=== PATIENT | female | born 1945 | race Caucasian/White ===

== ENCOUNTER → 2017-05-31 | Outpatient (CLI) | payer OTHER ==
[~2017-05-31] MED LIST: AGG PO; ATEN50TA8 PO; ATOR-54 PO; CHOL100010 PO; COEN75CA PO; FLUT115A INH; IPRA1AER2 INH; MULT-506 PO; OMEG10007 PO; POTA99TA PO; SPRIN/30 INH; TRIA37.5 PO
[2017-05-31 14:19] LABS: ALT/SGPT 27 U/L (12-78); AST/SGOT 21 U/L (15-37); BLOOD UREA NITROGEN 15 mg/dl (7-18); BUN/CREATININE RATIO 21.9 (10-20); CALCIUM 9.5 mg/dl (8.5-10.1); CARBON DIOXIDE 31 mmol/L (21-32); CHLORIDE 101 mmol/L (98-107); CHOLESTEROL 145 mg/dl (0-200); CREATININE 0.68 mg/dl (0.60-1.20); GLUCOSE 90 mg/dl (70-99); POTASSIUM 3.6 mmol/L (3.5-5.1); SODIUM 136 mmol/L (136-145); TRIGLYCERIDES 71 mg/dl (0-150); VERY LOW DENSITY LIPOPROT CALC 14 mg/dl
[2017-05-31 14:22] LABS: ALB/GLOB RATIO 1.2 (0.9-2); ALKALINE PHOSPHATASE 75 U/L (45-117); HDL CHOLESTEROL 74 mg/dl; HEMATOCRIT 43.2 % (37-47); LDL CHOLESTEROL CALCULATED 57 mg/dl; MEAN CELL VOLUME 94.9 fL (80-100); MEAN CORPUSCULAR HEMOGLOBIN 32.1 pg (25-34); MEAN CORPUSCULAR HGB CONC 33.8 g/dl (32-36); MEAN PLATELET VOLUME 9.6 fL (7.4-10.4); PLATELET COUNT 300 K/uL (130-400); RED BLOOD COUNT 4.55 M/uL (4.2-5.4); WHITE BLOOD COUNT 8.87 K/uL (4.8-10.8)
[2017-05-31 14:27] LABS: BASO % 0.6 %; BASO ABS # 0.05 K/uL (0-0.2); COMPLETE YES; EOS % 1.6 %; IG% 0.2 %; LYMPH % 20.5 %; LYMPH ABS # 1.82 K/uL (1.2-3.4); MONO % 9.2 %; NEUT % 67.9 %; PLT ESTIMATE NORMAL; VACUOLIZATION 1+
== END | disposition home or self-care (01) ==
LOC: C.LABMFLN 11:20
PROVIDERS: ATTEND Family Medicine
DX: I10 Essential (primary) hypertension (principal); E78.5 Hyperlipidemia, unspecified

== ENCOUNTER 2025-01-19 17:57 | Inpatient (IN) ==
[2025-01-19 18:35] LABS: Basophils # (auto) 0.03 K/uL (0.00-0.20); Basophils % (auto) 0.2 %; Eosinophils # (auto) 0.03 K/uL (0.00-0.50); Eosinophils % (auto) 0.2 %; Hematocrit (blood only) 34.2 % (37.0-47.0); Hemoglobin 10.9 g/dl (12.0-16.0); Immature Granulocytes % (auto) 0.8 %; Mean Corpuscular Hemoglobin 26.6 pg (25.0-34.0); Mean Corpuscular Hgb Conc 31.9 g/dL (32.0-36.0); Mean Corpuscular Volume 83.4 fL (80.0-100.0); Mean Platelet Volume 9.4 fL (9.4-12.4); Monocytes # (auto) 0.62 K/uL (0.11-0.59); Neutrophils # (auto) 10.23 K/uL (1.40-6.50); Neutrophils % (auto) 81.8 %; Platelet Count 453 K/uL (130-400); RDW Coefficient of Variation 13.9 % (11.5-14.5); RDW Standard Deviation 42.8 fL (36.4-46.3); White Blood Count 12.51 K/ul (4.8-10.8)
[2025-01-19 18:51] LABS: Albumin Globulin Ratio 1.1 (0.9-2); Albumin Level 4.2 gm/dl (3.4-5.0); BUN Creatinine Ratio 16.5 (10-20); Bilirubin,Total 0.3 mg/dl (0.2-1.0); Calcium 9.4 mg/dl (8.6-10.3); Creatinine Clr Calc Pharmacy 28.6 ml/min; Globulin 3.9 gm/dl (2.5-4.0); Total Protein 8.1 gm/dl (6.0-8.3)
[2025-01-19] MEDS: OPTIRAY 320 100ml IV ONE (19:20)
--- NOTE | 2025-01-19 19:29 | Emergency Department Note ---
Impression & Plan Abscess of neck, Lung cancer, Leukocytosis, Anemia ED Provider Note NAME: SCOTT DODGE AGE: 79 SEX: F : 1945 ARRIVES VIA: Walk-In INFORMANT: [Patient][family] ED PROVIDER(S): [Shaw Aaron MD] CHIEF COMPLAINT: Throat pain HISTORY OF PRESENT ILLNESS: The patient is a 79-year-old male who states that she has had a fullness to the anterior mid throat/neck for almost a year. In the last few days, the area has become painful, inflamed, reddened and she did have a bit of drainage. The area has enlarged over just a few days. The patient went to her doctor's office today, she was referred for an evaluation. Patient denies fever or chills. She does admit that for the last 2 days, she has been more short of breath with a slightly increased cough. No vomiting or diarrhea. Of note, the patient does have lung cancer and is undergoing treatment. PMHx/PSHx/Social Hx: See Below PHYSICAL EXAM: GENERAL: Patient is in no acute distress. Thin and frail. HEENT: No acute trauma, normocephalic atraumatic, mucous membranes moist, no nasal congestion. NECK: No stridor, no adenopathy, no meningismus, trachea is midline. There is a 5 to 6 cm fullness to the anterior mid neck that is erythematous, tender and mobile. No active drainage. LUNGS: Diminished breath sounds especially on the left. Occasional wheezes heard. No respiratory distress. HEART: Without murmurs gallops or rubs, regular rate and rhythm. ABDOMEN: Soft, nontender, no peritonitis. EXTREMITIES: No cyanosis, full range of motion of all the joints without pain or difficulty. NEUROLOGIC: Oriented x 3, no acute motor or sensory deficits, no focal weakness. SKIN: No jaundice, no diaphoresis. DIFFERENTIAL DIAGNOSIS: Abscess, thyroid mass, bronchitis or pneumonia, viral illness, bacteremia or sepsis, among others. EMERGENCY DEPARTMENT PROCEDURES: MEDICAL DECISION MAKING: There is a mild leukocytosis, this would be consistent with infection. A slight anemia was seen, this is baseline looking back at previous testing. Platelet count is slightly elevated at 453. No renal failure. Lactic acid level is not elevated making severe sepsis less likely. There is no concerning liver enzyme elevation. Procalcitonin level was not elevated. Respiratory bio fire is pending. Chest x-ray shows a mass/infiltrate in the right lower lung, this is the side where she has cancer. There was no pneumothorax or CHF. Soft tissue neck CT shows a infected collection of fluid across the anterior neck consistent with a thyroglossal duct cyst. On exam, the anterior neck mass was firm, warm to the touch and tender. The patient did have diminished breath sounds especially on the left. The patient received IV saline, 500 cc. She was given IV cefepime as antibiotic coverage. She received a DuoNeb to help with her lung disease. I did speak with ENT--admission, IV antibiotics were recommended. The patient will be seen by ENT in the morning and likely undergo drainage of the abscess. Patient is currently resting comfortably. She is not septic in appearance. She is in need of a hospital stay. I did speak with her and her family. I did speak with the case picker. The on-call hospitalist was consulted. Prior/Outside records/notes reviewed: Today's outpatient note describing the findings, the concerns and the need for an ED referral. Imaging/x-ray results per my interpretation: Chest x-ray does show a right lower lung mass/infiltrate. No old records to use for chest x-ray comparison. There was no CHF or pneumothorax. Chronic Medical/Social conditions affecting care: Advanced age, history of lung cancer Care/Management discussed with: Case management, the on-call hospitalist. ENT-Dr. Rhodes Level of care consideration(s): After review of the information above and other included data: --I believe the patient requires escalation of care to admission DISPOSITION: Admission Past Med/Surg History Problem List (Updated 01/19/25 @ 20:44 by Shaw Aaron MD) Anemia (Acute) Leukocytosis (Acute) Lung cancer (Acute) Abscess of neck (Acute) Thyroglossal duct infection Osteoporosis FISH (obstructive sleep apnea) Pulmonary embolism Adenocarcinoma of right lung Acid reflux Pulmonary Mycobacterium avium complex (MAC) infection Iron deficiency anemia Benign essential hypertension (Chronic) COPD, severe (Chronic) History of stroke without residual deficits (Chronic) Hyperlipidemia (Chronic) Pulmonary hypertension (Chronic) Vitamin D deficiency (Chronic) Medical History Bilateral leg edema Abnormal mammogram Multiple pulmonary nodules Surgical History (Updated 06/25/24 @ 13:32 by ZURI Whitaker) S/P LEEP (loop electrosurgical excision procedure) H/O wrist surgery LEFT S/P appendectomy S/P cardiac cath no stents S/P colonoscopy S/P cholecystectomy History of bronchoscopy 10/09/19, March 2022 Family History Mother Coronary heart disease Diabetes Cancer Uterus Enlarged heart Family/Other Breast cancer cousin Sister Breast cancer Father Leukemia Denies family history of Ovarian cancer Prostate cancer Myocardial infarction Colorectal cancer Social History Smoking Status: Former smoker Tobacco Type: Cigarettes Age Started Using Tobacco: 19; Age Quit Using Tobacco: 78; packs per day: 0.5; Second Hand Exposure: Yes (Both parents smoked ); Do You Dip or Chew Tobacco: No; Hx Alcohol Use: No Hx Substance Use: No Preferred Language: Maltese Communication Ability: Effective Visual Impairment: Limited Hearing Ability: Normal Lens Assorter Required: No Beliefs That Will Affect Care: None marital status: Current Living Situation: Family Current Living Situation Comment: son and grandson live with patient current occupational status: retired How many Children do You have: 3 Feels Safe at Home: Yes Childhood Exposure to Second-Hand Smoke: Yes (mother) Diet: regular Diet Comment: Regular diet caffeine: Yes (coffee) during the past year weight has: decreased > 10 lbs Dental Care, Regularly: No Physical Activity Frequency: Does not Exercise Seatbelt Use: always Sunscreen Use: No Do you think of yourself as: straight/heterosexual Assistive Devices: BiPap, Denture - Upper, Denture - Lower, Glasses and Oxygen - Continuous Allergies Allergies Allergy/AdvReac Type Severity Reaction Status Date / Time atorvastatin Allergy Unknown MUSLCE Verified 01/19/25 15:39 ACHES clopidogrel Allergy Unknown HEADACHE Verified 01/19/25 15:39 lisinopril Allergy Unknown TONGUE Verified 01/19/25 15:39 SWELLING gemfibrozil [From Lopid] Allergy Verified 01/19/25 15:39 Home Meds Home Medications Medication Instructions Recorded Confirmed Oxygen Home #1 ea 01/22/23 01/19/25 apixaban 5 mg tablet 5 mg PO BID 08/20/23 01/19/25 furosemide 20 mg tablet 20 mg PO Q OTHER DAY 10/10/24 01/19/25 potassium chloride 20 mEq 20 meq PO Q OTHER DAY 10/10/24 01/19/25 tablet,extended release dexamethasone 4 mg tablet 4 mg PO DIRECTED 01/19/25 01/19/25 voriconazole 200 mg tablet 200 mg PO DAILY 01/19/25 01/19/25 Previous Rx's Medication Instructions Recorded Petite rollator walker #1 ea 03/08/23 mirtazapine 7.5 mg tablet 7.5 mg PO HS #90 tabs 03/26/23 ferrous sulfate 325 mg (65 mg 325 mg PO DAILY #100 tabs 11/01/23 iron) tablet albuterol sulfate 2.5 mg/3 mL 2.5 mg (3 mL) inhalation QID PRN 01/29/24 (0.083 %) solution for nebulization shortness of breath or wheezing #180 mL atenolol 50 mg tablet 50 mg PO DAILY #90 tabs 10/13/24 amlodipine 2.5 mg tablet 2.5 mg PO DAILY #30 tabs 11/05/24 fluticasone fur. 200 mcg-umeclid 1 inh inhalation DAILY #60 ea 11/05/24 62.5 mcg-vilant 25 mcg inhalat.powder (Trelegy Ellipta) omeprazole 20 mg capsule,delayed 20 mg PO DAILY #90 caps 12/12/24 release Results & Data (ED) Vital Signs Vital Signs - 24 hr 01/19/25 18:00 01/19/25 19:37 01/19/25 20:11 Temperature 36.7 C Temperature Source Temporal Artery Scan Pulse Rate 92 H 82 Pulse Rate [Right Finger] 85 Pulse Rhythm Regular Pulse Rhythm [Right Finger] Regular Pulse Strength Normal Pulse Strength [Right Finger] Normal Respiratory Rate 20 19 Respiratory Effort / Characteristics Non-Labored Spontaneous Non-Labored Respiratory Depth Normal Normal Respiratory Pattern Regular Blood Pressure 183/83 H Blood Pressure [Right Arm] 142/70 H Blood Pressure Mean 116 Blood Pressure Mean [Right Arm] 94 Blood Pressure Position [Right Arm] Lying Pulse Oximetry 91 98 Oxygen Delivery Method Nasal Cannula Room Air Oxygen Flow Rate 2 Sepsis Recent Fever Within 48 Hours No Sepsis New/Unexplained Change in Mental Status N/A Sepsis Action Taken by Nursing No Action Required Home Medications Current Medication List: was personally reviewed by me Laboratory Data Attestation: I reviewed the patient's lab results. 01/19/25 18:16 01/19/25 18:16 Lab Results 01/19/25 01/19/25 Range/Units 18:16 19:49 WBC 12.51 H (4.8-10.8) K/ul RBC 4.10 L (4.20-5.40) M/uL Hgb 10.9 L (12.0-16.0) g/dl Hct 34.2 L (37.0-47.0) % MCV 83.4 (80.0-100.0) fL MCH 26.6 (25.0-34.0) pg MCHC 31.9 L (32.0-36.0) g/dL RDW Std Deviation 42.8 (36.4-46.3) fL RDW Coeff of Tani 13.9 (11.5-14.5) % Plt Count 453 H (130-400) K/uL MPV 9.4 (9.4-12.4) fL Immature Gran % (Auto) 0.8 % Neut % (Auto) 81.8 % Lymph % (Auto) 12.0 % [place] % (Auto) 5.0 % Eos % (Auto) 0.2 % Baso % (Auto) 0.2 % Neut # (Auto) 10.23 H (1.40-6.50) K/uL Lymph # (Auto) 1.50 (1.20-3.40) K/uL [place] # (Auto) 0.62 H (0.11-0.59) K/uL Eos # (Auto) 0.03 (0.00-0.50) K/uL Baso # (Auto) 0.03 (0.00-0.20) K/uL Immature Gran # (Auto) 0.10 (0.01-0.20) K/uL Sodium 139 (136-145) mmol/L Potassium 4.0 (3.5-5.1) mmol/L Chloride 100 (98-107) mmol/L Carbon Dioxide 31 (21-32) mmol/L Anion Gap 8 (3-11) BUN 18 (6-23) mg/dl Creatinine 1.09 (0.6-1.2) mg/dl Est Cr Clr Drug Dosing 28.6 ml/min eGFR 52.00 BUN/Creatinine Ratio 16.5 (10-20) Glucose 156 H (70-99(Fasting)) mg/dl Lactate 1.7 (0.4-2.0) mmol/L Calcium 9.4 (8.6-10.3) mg/dl Total Bilirubin 0.3 (0.2-1.0) mg/dl AST 16 (13-39) U/L ALT 12 (7-52) U/L Alkaline Phosphatase 101 (34-104) U/L Total Protein 8.1 (6.0-8.3) gm/dl Albumin 4.2 (3.4-5.0) gm/dl Globulin 3.9 (2.5-4.0) gm/dl Albumin/Globulin Ratio 1.1 (0.9-2) Procalcitonin 0.16 (0-0.5) ng/ml Administered Medications Discontinued Medications Albuterol (Albut/Ipratrop 3mg/0.5mg Neb 3 Ml Vial) 3 ml NEB NOW STA; Protocol Stop: 01/19/25 19:23 Last Admin: 01/19/25 20:12 Dose: 3 ml Documented By: SABRINA Cefepime HCl (Maxipime 2000mg) 2,000 mg in 20 mls @ 5 mls/min IV NOW STA; Protocol Stop: 01/19/25 19:25 Last Admin: 01/19/25 20:12 Dose: 5 mls/min Documented By: SABRINA Sodium Chloride (Nss) 500 mls @ 999 mls/hr IV .Q31M ONE Stop: 01/19/25 19:53 Last Admin: 01/19/25 20:12 Dose: 999 mls/hr Documented By: SABRINA Ioversol (Optiray 320 100ml) 90 ml IV ONCE ONE Stop: 01/19/25 19:21 Last Admin: 01/19/25 19:20 Dose: 90 ml Documented By: LATHA Imaging Data Radiologist's Impression: Soft Tissue Neck CT 01/19/25 19:06 EXAM: CT Neck With Intravenous Contrast INDICATION: The patient has noted a cyst on her neck intermittently over the last few years and Sunday it burst. TECHNIQUE: Axial computed tomography images of the neck with intravenous contrast. Sagittal and coronal reformatted images were created and reviewed. This CT exam was performed using one or more of the following dose reduction techniques: automated exposure control, adjustment of the mA and/or kV according to patient size, and/or use of iterative reconstruction technique. CONTRAST: 90ml of Optiray 320 was administered intravenously. COMPARISON: No relevant prior studies available. FINDINGS: Oropharynx: No abnormality noted. No significant tonsillar enlargement. No peritonsillar abscess. Hypopharynx: No abnormality noted. Larynx: No abnormality noted. Normal epiglottis. Trachea: No abnormality noted. Retropharyngeal space: No abnormality noted. Submandibular/parotid glands: No abnormality noted. Glands are normal in size. Thyroid: No abnormality noted. Bones/joints: No acute changes. Soft tissues: In the midline subcutaneous fat is a irregular multiloculated cyst with adjacent fluid consistent with rupture measuring in total 3.9 cm long by 1.6 cm AP by approximately 1.9 cm transverse. The process is centered at the level of the thyroid cartilage and inseparable from the midline platysma. There is edema of the surrounding fat. There is some edema subjacent to the platysma at the level of the thyroid cartilage. No radiopaque foreign body or soft tissue gas. Vasculature: There is moderate atherosclerosis of the proximal cervical internal carotid arteries. There is approximately 50% stenosis on the left and less than 25% stenosis on the right. Lymph nodes: No abnormality noted. No lymphadenopathy. Lung apices: No significant abnormality noted. Pleural space: Centrilobular emphysema noted. There is right apical pleural and parenchymal scarring. No apical pneumothorax. IMPRESSION: There is an inflamed midline subcutaneous irregular cyst centered at the thyroid cartilage. This most likely reflects a thyroglossal duct cyst with superimposed infection and partial rupture. ACT 112: N/A Electronically signed by Nilsa Clarke 01-19-2025 7:40 PM Chest X-Ray 01/19/25 19:22 EXAM: Radiograph of the Chest 1 View INDICATION: Shortness of breath TECHNIQUE: Frontal view of the chest. COMPARISON: No relevant prior studies available. FINDINGS: Lungs and pleural spaces: There is an irregular parenchymal opacity in the right lung base measuring 6.1 cm long by 4.5 cm transverse. There is scarring in the right lung apex. Mild right apical pleural thickening. No layering pleural effusion. No pneumothorax. Heart: Shape and configuration within normal limits allowing for technique. Mediastinum: Normal contour. Bones/joints: No fracture, erosion or dislocation. Soft tissues: No abnormality noted. No radiopaque foreign body noted. Upper abdomen: No abnormality noted. IMPRESSION: Irregular right basilar pulmonary opacity. While this could reflect pneumonia, neoplasm not excluded. ACT 112: N/A Electronically signed by Nilsa Clarke 01-19-2025 7:41 PM Discharge Plan Visit Data Chief Complaint: Throat Pain Stated Complaint: CYST BUSTED IN THROAT ED Provider: Shaw Aaron Discharge Problem: Abscess of neck, Lung cancer, Leukocytosis, Anemia Patient Disposition: Admitted As Inpatient Condition: Fair Forms Stand Alone Forms: [facility] [employer] Prescriptions Prescriptions: No Action mirtazapine 7.5 mg tablet 7.5 mg PO HS Qty: 90 1RF ferrous sulfate 325 mg (65 mg iron) tablet 325 mg PO DAILY Qty: 100 1RF albuterol sulfate 2.5 mg /3 mL (0.083 %) solution for nebulization 2.5 mg inhalation QID PRN (Reason: shortness of breath or wheezing) Qty: 180 1RF atenolol 50 mg tablet 50 mg PO DAILY Qty: 90 3RF Rx Instructions: 50 mg PO daily; omeprazole 20 mg capsule,delayed release(DR/EC) 20 mg PO DAILY Qty: 90 1RF (DME) Oxygen Home Liters Per Minute See Rx Instructions .ROUTE .MEDSUPPLY Qty: 1 Rx Instructions: Administer 2/L min into nostril continuous 2L at rest and please titrate up to 6L of oxygen at exercise (DME) Partha taylor See Rx Instructions .Route .MEDSUPPLY Qty: 1 0RF Rx Instructions: As directed apixaban 5 mg tablet 5 mg PO BID Rx Instructions: Take 2 tablets by mouth twice daily for 4 days, then take 1 tablet twice daily amlodipine 2.5 mg tablet 2.5 mg PO DAILY Qty: 30 2RF Trelegy Ellipta 200-62.5-25 mcg blister with device 1 inh inhalation DAILY Qty: 60 4RF potassium chloride 20 mEq tablet extended release 20 meq PO Q OTHER DAY furosemide 20 mg tablet 20 mg PO Q OTHER DAY voriconazole 200 mg tablet 200 mg PO DAILY dexamethasone 4 mg tablet 4 mg PO DIRECTED Rx Instructions: TAKE ONE TABLET BY MOUTH AT SUPPER NIGHT BEFORE TREATMENT AND ONE TABLET AT BREAKFAST DAY OF TREATMENT Referrals Referrals: Short,Becky Chalo-Deloris, DO [Primary Care Provider] - Discharge Problem: Lung cancer Qualifiers: Laterality: right Lung location: unspecified part of lung Qualified Code(s): C 34.91 - Malignant neoplasm of unspecified part of right bronchus or lung Leukocytosis Qualifiers: Leukocytosis type: unspecified Qualified Code(s): D72.829 - Elevated white blood cell count, unspecified Anemia Qualifiers: Anemia type: unspecified type Qualified Code(s): D64.9 - Anemia, unspecified
--- NOTE | 2025-01-19 19:41 | CT Scan Report ---
EXAM: CT Neck With Intravenous Contrast INDICATION: The patient has noted a cyst on her neck intermittently over the last few years and Sunday it burst. TECHNIQUE: Axial computed tomography images of the neck with intravenous contrast. Sagittal and coronal reformatted images were created and reviewed. This CT exam was performed using one or more of the following dose reduction techniques: automated exposure control, adjustment of the mA and/or kV according to patient size, and/or use of iterative reconstruction technique. CONTRAST: 90ml of Optiray 320 was administered intravenously. COMPARISON: No relevant prior studies available. FINDINGS: Oropharynx: No abnormality noted. No significant tonsillar enlargement. No peritonsillar abscess. Hypopharynx: No abnormality noted. Larynx: No abnormality noted. Normal epiglottis. Trachea: No abnormality noted. Retropharyngeal space: No abnormality noted. Submandibular/parotid glands: No abnormality noted. Glands are normal in size. Thyroid: No abnormality noted. Bones/joints: No acute changes. Soft tissues: In the midline subcutaneous fat is a irregular multiloculated cyst with adjacent fluid consistent with rupture measuring in total 3.9 cm long by 1.6 cm AP by approximately 1.9 cm transverse. The process is centered at the level of the thyroid cartilage and inseparable from the midline platysma. There is edema of the surrounding fat. There is some edema subjacent to the platysma at the level of the thyroid cartilage. No radiopaque foreign body or soft tissue gas. Vasculature: There is moderate atherosclerosis of the proximal cervical internal carotid arteries. There is approximately 50% stenosis on the left and less than 25% stenosis on the right. Lymph nodes: No abnormality noted. No lymphadenopathy. Lung apices: No significant abnormality noted. Pleural space: Centrilobular emphysema noted. There is right apical pleural and parenchymal scarring. No apical pneumothorax. IMPRESSION: There is an inflamed midline subcutaneous irregular cyst centered at the thyroid cartilage. This most likely reflects a thyroglossal duct cyst with superimposed infection and partial rupture. ACT 112: N/A Electronically signed by Nilsa Clarke 01-19-2025 7:40 PM
--- NOTE | 2025-01-19 19:42 | XRay Report ---
EXAM: Radiograph of the Chest 1 View INDICATION: Shortness of breath TECHNIQUE: Frontal view of the chest. COMPARISON: No relevant prior studies available. FINDINGS: Lungs and pleural spaces: There is an irregular parenchymal opacity in the right lung base measuring 6.1 cm long by 4.5 cm transverse. There is scarring in the right lung apex. Mild right apical pleural thickening. No layering pleural effusion. No pneumothorax. Heart: Shape and configuration within normal limits allowing for technique. Mediastinum: Normal contour. Bones/joints: No fracture, erosion or dislocation. Soft tissues: No abnormality noted. No radiopaque foreign body noted. Upper abdomen: No abnormality noted. IMPRESSION: Irregular right basilar pulmonary opacity. While this could reflect pneumonia, neoplasm not excluded. ACT 112: N/A Electronically signed by Nilsa Clarke 01-19-2025 7:41 PM
[2025-01-19] MEDS: CEFEPIME 2000MG 2,000 MG/20 ML SYR IV STA (20:12)
[2025-01-19] MEDS: SODIUM CHLORIDE 0.9% 500 ML IV ONE (20:12)
[2025-01-19] MEDS: ALBUT/IPRATROP 3MG/0.5MG NEB 3 ML VIAL NEB STA (20:12)
--- NOTE | 2025-01-19 20:41 | History & Physical Report ---
Date of Service January 19, 2025 Assessment & Plan (1) Thyroglossal duct infection: (2) Abscess of neck: (3) Lung cancer: (4) FISH (obstructive sleep apnea): Plan 79-year-old female PMHx adenocarcinoma of lung, history of PE on Eliquis, FISH, HTN, COPD, and history of CVA presenting for a cyst on her neck that has started to cause her pain approximately 4 days [employer]. ED evaluation reveals leukocytosis 12.51, H&H 10.9/34.2; CMP grossly WNL with exception glucose 156; lactate 1.7; procalcitonin 0.16; BioFire pending; soft tissue neck CT reveals inflamed midline subcutaneous irregular cyst centered at thyroid cartilage most likely reflecting a thyroglossal duct cyst with superimposed infection and partial rupture; CXR irregular R basilar pulmonary opacity. Patient was provided with 500 mL NSS, cefepime 2 g IV, and albuterol nebulizer x 1 in ED. #Acute infection of thyroglossal duct cyst/Abscess of neck Known cyst for approximately 1 year, started to become enlarged and irritated approximately 4 days [employer]; was seen by PCP who recommended being evaluated in ER. Patient without difficulties breathing or swallowing at time of admission. - CBC leukocytosis 12.51, H&H 10.9/34.2; CMP unremarkable; lactate WNL; blood cultures pending - CBC, BMP am - Soft tissue neck CT reveals inflamed midline subcutaneous irregular cyst centered at thyroid cartilage (thyroglossal duct cyst with superimposed infection partial rupture) - LR @ 100 mL/h x 1 L (EF 2022 60-64%) - Unasyn 3 g IV every 6 hours - Hold Eliquis - ENT consulted- NPO at midnight + continue abx #Lung cancer/COPD/MAC (pulmonary) Adenocarcinoma of right lung, follows with Dr. Powers and receives immunotherapy every 3 weeks. Diagnosed with MAC 06/2021, [facility]. On azithromycin M/W/F for COPD. Most recent pulmonology visit 10/09/2024, most recent oncology visit 10/08/2024. Received DuoNeb in ED. - CXR irregular R basilar pulmonary opacity - O2 2L at rest, 4L with exertion; BiPAP nightly - Continue inhalers, continue azithromycin - DuoNebs prn wheezing/SOB - Due for chemotherapy 01/20/2025- Please discuss with Dr. Powers or consult heme/onc for plan moving forward with this #FISH BiPAP nightly; 2L O2 at rest, 4L O2 with exertion - Continue BiPAP + O2 per patient's baseline #HTN- Amlodipine, atenolol; Furosemide every other day (unclear when last taken, HELD at admission) #History of PE-diagnosed 07/2023; Eliquis (HELD at admission) #FLORENCIA- Iron supplementation; H/H at admission 34.2 #GERD- Omeprazole #Mood- Mirtazapine Dispo: Admit, med/sx VTE Prophylaxis: On Eliquis- HELD at admission This document was dictated utilizing [employer]et[employer]. Please excuse any grammatical errors that may be secondary to use of this software. Admission and Anticipated Discharge Date Admission Date: 01/19/2025 History of Present Illness Chief Complaint: Throat pain Primary Care Provider: Becky Isabel-Deloris Villalobos DO 79-year-old female PMHx adenocarcinoma of lung, history of PE on Eliquis, FISH, HTN, COPD, and history of CVA presenting for a cyst on her neck that has started to cause her pain approximately 4 days [employer]. Patient was evaluated by PCP on the day of arrival and PCP recommended she be evaluated in ER. Patient states that the cyst has been in the front of her neck for the past "few weeks". On occasion she is able to pop the cyst and it would drain, however, over the weekend [employer] she tried to pop the cyst and was unsuccessful. The prior 48 hours leading to ER evaluation, the area became more red, swollen, and tender. Patient states that she felt as though the cyst had popped internally and this is what caused her concern because this is never happened before. Patient states that she does have some tenderness at the location of the cyst as well as bleeding down into sternum and left side of neck, but this is only when touching the area. States that she is having no difficulties with swallowing and no difficulties with breathing. Denies any SOB or cough. Denies fever or chills. States that the week [employer] she was sick with nausea and vomiting, but this has since subsided. Otherwise denying chest pain, palpitations, abdominal pain, N/V/D/C, numbness/tingling, syncope, weakness, URI symptoms, or LUTS. States that she has never had this happen before, but she does occasionally have the cyst fill up. Patient took her Eliquis the morning of arrival but has not taken her evening dose. ED evaluation reveals leukocytosis 12.51, H&H 10.9/34.2; CMP grossly WNL with exception glucose 156; lactate 1.7; procalcitonin 0.16; BioFire pending; soft tissue neck CT reveals inflamed midline subcutaneous irregular cyst centered at thyroid cartilage most likely reflecting a thyroglossal duct cyst with superimposed infection and partial rupture; CXR irregular R basilar pulmonary opacity. Patient was provided with 500 mL NSS, cefepime 2 g IV, and albuterol nebulizer x [address] see Dr[address] Rodriguez's attestation for adjustments/additions to treatment plan. Allergies Allergy/AdvReac Type Severity Reaction Status Date / Time atorvastatin Allergy Unknown MUSLCE Verified 01/19/25 15:39 ACHES clopidogrel Allergy Unknown HEADACHE Verified 01/19/25 15:39 lisinopril Allergy Unknown TONGUE Verified 01/19/25 15:39 SWELLING gemfibrozil [From Lopid] Allergy Verified 01/19/25 15:39 Home Medications Medication Instructions Recorded Confirmed Type Oxygen Home #1 ea 01/22/23 01/19/25 History Petite rollator walker #1 ea 03/08/23 01/19/25 Rx mirtazapine 7.5 mg tablet 7.5 mg PO HS #90 tabs 03/26/23 01/19/25 Rx apixaban 5 mg tablet 5 mg PO BID 08/20/23 01/19/25 History ferrous sulfate 325 mg (65 mg 325 mg PO DAILY #100 tabs 11/01/23 01/19/25 Rx iron) tablet albuterol sulfate 2.5 mg/3 mL 2.5 mg (3 mL) inhalation QID PRN 01/29/24 01/19/25 Rx (0.083 %) solution for nebulization shortness of breath or wheezing #180 mL furosemide 20 mg tablet 20 mg PO Q OTHER DAY 10/10/24 01/19/25 History potassium chloride 20 mEq 20 meq PO Q OTHER DAY 10/10/24 01/19/25 History tablet,extended release atenolol 50 mg tablet 50 mg PO DAILY #90 tabs 10/13/24 01/19/25 Rx amlodipine 2.5 mg tablet 2.5 mg PO DAILY #30 tabs 11/05/24 01/19/25 Rx fluticasone fur. 200 mcg-umeclid 1 inh inhalation DAILY #60 ea 11/05/24 01/19/25 Rx 62.5 mcg-vilant 25 mcg inhalat.powder (Trelegy Ellipta) omeprazole 20 mg capsule,delayed 20 mg PO DAILY #90 caps 12/12/24 01/19/25 Rx release dexamethasone 4 mg tablet 4 mg PO DIRECTED 01/19/25 01/19/25 History voriconazole 200 mg tablet 200 mg PO DAILY 01/19/25 01/19/25 History Past Med/Surg History Problem List Anemia (Acute) Leukocytosis (Acute) Lung cancer (Acute) Abscess of neck (Acute) Thyroglossal duct infection (Acute) Osteoporosis FISH (obstructive sleep apnea) Pulmonary embolism Adenocarcinoma of right lung Acid reflux Pulmonary Mycobacterium avium complex (MAC) infection Iron deficiency anemia Benign essential hypertension (Chronic) COPD, severe (Chronic) History of stroke without residual deficits (Chronic) Hyperlipidemia (Chronic) Pulmonary hypertension (Chronic) Vitamin D deficiency (Chronic) Medical History Bilateral leg edema Abnormal mammogram Multiple pulmonary nodules Surgical History S/P LEEP (loop electrosurgical excision procedure) H/O wrist surgery LEFT S/P appendectomy S/P cardiac cath no stents S/P colonoscopy S/P cholecystectomy History of bronchoscopy 10/09/19, March 2022 Family History Mother Coronary heart disease Diabetes Cancer Uterus Enlarged heart Family/Other Breast cancer cousin Sister Breast cancer Father Leukemia Denies family history of Ovarian cancer Prostate cancer Myocardial infarction Colorectal cancer Social History Smoking Status: Former smoker Tobacco Type: Cigarettes Age Started Using Tobacco: 19; Age Quit Using Tobacco: 78; packs per day: 0.5; Second Hand Exposure: Yes (Both parents smoked ); Do You Dip or Chew Tobacco: No; Hx Alcohol Use: No Hx Substance Use: No Preferred Language: Pashto Communication Ability: Effective Visual Impairment: Limited Hearing Ability: Normal Pre Press Manager Required: No Beliefs That Will Affect Care: None marital status: Current Living Situation: Alone Current Living Situation Comment: son and grandson live with patient current occupational status: retired How many Children do You have: 3 Other Information That Helps Us Care for You: No Feels Safe at Home: Yes Safety Concerns: Feels Safe At This Time Childhood Exposure to Second-Hand Smoke: Yes (mother) Diet: regular Diet Comment: Regular diet caffeine: Yes (coffee) during the past year weight has: decreased > 10 lbs Dental Care, Regularly: No Physical Activity Frequency: Does not Exercise Seatbelt Use: always Sunscreen Use: No Do you think of yourself as: straight/heterosexual Assistive Devices: Denture - Upper and Glasses Review of Systems 2 Review of Systems: All systems reviewed & are unremarkable except as noted in Subjective Physical Exam 2 Physical Exam: General: No acute distress, thin Skin: Warm and dry Head: Normocephalic, atraumatic Eyes: PERRL, conjunctivae clear, sclera non-icteric ENT: External ear and ear canal without swelling; nose atraumatic; good dentition, tongue normal appearance, pharynx normal Neck: Trachea midline; significant fullness in the anterior mid neck, slight deviation towards left side; erythematous and tender, no streaking; no drainage noted; not fixed (see picture) Cardio: RRR, no M/G/R, S1 and S2 normal Resp: No respiratory distress, slightly diminished breath sounds bilaterally, no wheezing appreciated during time of admission (s/p albuterol nebulizer) Abdomen: Soft, symmetric, nontender; No masses or hepatosplenomegaly; Bowel sounds normoactive MSK: No deformities; pulses palpable and equal; no edema. Neuro: Awake, alert; Sensation intact bilaterally; CN grossly intact Psych: Appropriate mood and affect; good judgement and insight. 2 family members present in room at time of visit. Results & Data Results & Data Vital Signs (Past 12 Hours) Vital Signs Temp Pulse Pulse Resp BP BP Pulse Ox 01/19/25 20:11 85 19 142/70 H 98 01/19/25 19:37 82 01/19/25 18:00 36.7 C 92 H 20 183/83 H 91 O2 Del Method O2 Flow Rate 01/19/25 20:11 Room Air 01/19/25 19:37 01/19/25 18:00 Nasal Cannula 2 Laboratory Results 01/19/25 19:50 Aerobic Blood Culture - Pending Blood Anaerobic Blood Culture - Pending 01/19/25 19:49 Aerobic Blood Culture - Pending Blood Anaerobic Blood Culture - Pending 01/19/25 01/19/25 19:49 18:16 WBC 12.51 H RBC 4.10 L Hgb 10.9 L Hct 34.2 L MCV 83.4 MCH 26.6 MCHC 31.9 L RDW Std Deviation 42.8 RDW Coeff of Tani 13.9 Plt Count 453 H MPV 9.4 Immature Gran % (Auto) 0.8 Neut % (Auto) 81.8 Lymph % (Auto) 12.0 [place] % (Auto) 5.0 Eos % (Auto) 0.2 Baso % (Auto) 0.2 Neut # (Auto) 10.23 H Lymph # (Auto) 1.50 [place] # (Auto) 0.62 H Eos # (Auto) 0.03 Baso # (Auto) 0.03 Immature Gran # (Auto) 0.10 Sodium 139 Potassium 4.0 Chloride 100 Carbon Dioxide 31 Anion Gap 8 BUN 18 Creatinine 1.09 Est Cr Clr Drug Dosing 28.6 eGFR 52.00 BUN/Creatinine Ratio 16.5 Glucose 156 H Lactate 1.7 Calcium 9.4 Total Bilirubin 0.3 AST 16 ALT 12 Alkaline Phosphatase 101 Total Protein 8.1 Albumin 4.2 Globulin 3.9 Albumin/Globulin Ratio 1.1 Procalcitonin 0.16 Diagnostic Findings Soft Tissue Neck CT 01/19/25 19:06 EXAM: CT Neck With Intravenous Contrast INDICATION: The patient has noted a cyst on her neck intermittently over the last few years and Sunday it burst. TECHNIQUE: Axial computed tomography images of the neck with intravenous contrast. Sagittal and coronal reformatted images were created and reviewed. This CT exam was performed using one or more of the following dose reduction techniques: automated exposure control, adjustment of the mA and/or kV according to patient size, and/or use of iterative reconstruction technique. CONTRAST: 90ml of Optiray 320 was administered intravenously. COMPARISON: No relevant prior studies available. FINDINGS: Oropharynx: No abnormality noted. No significant tonsillar enlargement. No peritonsillar abscess. Hypopharynx: No abnormality noted. Larynx: No abnormality noted. Normal epiglottis. Trachea: No abnormality noted. Retropharyngeal space: No abnormality noted. Submandibular/parotid glands: No abnormality noted. Glands are normal in size. Thyroid: No abnormality noted. Bones/joints: No acute changes. Soft tissues: In the midline subcutaneous fat is a irregular multiloculated cyst with adjacent fluid consistent with rupture measuring in total 3.9 cm long by 1.6 cm AP by approximately 1.9 cm transverse. The process is centered at the level of the thyroid cartilage and inseparable from the midline platysma. There is edema of the surrounding fat. There is some edema subjacent to the platysma at the level of the thyroid cartilage. No radiopaque foreign body or soft tissue gas. Vasculature: There is moderate atherosclerosis of the proximal cervical internal carotid arteries. There is approximately 50% stenosis on the left and less than 25% stenosis on the right. Lymph nodes: No abnormality noted. No lymphadenopathy. Lung apices: No significant abnormality noted. Pleural space: Centrilobular emphysema noted. There is right apical pleural and parenchymal scarring. No apical pneumothorax. IMPRESSION: There is an inflamed midline subcutaneous irregular cyst centered at the thyroid cartilage. This most likely reflects a thyroglossal duct cyst with superimposed infection and partial rupture. ACT 112: N/A Electronically signed by Nilsa Clarke 01-19-2025 7:40 PM Chest X-Ray 01/19/25 19:22 EXAM: Radiograph of the Chest 1 View INDICATION: Shortness of breath TECHNIQUE: Frontal view of the chest. COMPARISON: No relevant prior studies available. FINDINGS: Lungs and pleural spaces: There is an irregular parenchymal opacity in the right lung base measuring 6.1 cm long by 4.5 cm transverse. There is scarring in the right lung apex. Mild right apical pleural thickening. No layering pleural effusion. No pneumothorax. Heart: Shape and configuration within normal limits allowing for technique. Mediastinum: Normal contour. Bones/joints: No fracture, erosion or dislocation. Soft tissues: No abnormality noted. No radiopaque foreign body noted. Upper abdomen: No abnormality noted. IMPRESSION: Irregular right basilar pulmonary opacity. While this could reflect pneumonia, neoplasm not excluded. ACT 112: N/A Electronically signed by Nilsa Clarke 01-19-2025 7:41 PM Medications Administered NSS 500 mL Cefepime 2 g IV Albuterol 3 mL neb Code Status & VTE Plan Code Status DNR/DNI Discussed in detail what "DNR/DNI" entails; patient and 2 family members in room understood fully. All questions asked and answered. Patient agreeable to DNR/DNI status. Supervising Physician Co-Signing Physician Notes Patient seen and examined, chart reviewed, case discussed with SHARON Bermudez I agree with assessment plan as documented above. In brief, patient is a 71-year-old female with history of right-sided lung cancer, PE on apixaban anticoagulation, FISH and hypertension presenting with several days of increased redness, swelling and tenderness of her anterior neck. Patient has what appears to be an infection of a thyroglossal cyst. She is afebrile, hemodynamically stable, does not report any impingement on airway or difficulty swallowing. On physical exam she is afebrile, hemodynamically stable, nontoxic in appearance Skinno rash HEENTmoist mucous membranes, photograph as above of anterior neck. Area of swelling, induration, redness and tenderness as noted above Heart+ S1, S2, regular, no murmur/rub/gallops Lungs/CTA anteriorly, no rales/rhonchi/wheezes Abdomensoft, nontender, nondistended Labs and images reviewed. Significant for WBC = 12.5, Hgb = 10.9, HCT = 34.2. Assessment/plan: 79-year-old female with severe COPD (FEV1 = 31% per pulmonary note 10/09/2024), right lower lobe non-small cell lung cancer, prior PE on apixaban anticoagulation, FISH and hypertension presenting with progressive redness, swelling and edema of anterior neck mass. CT imaging findings as above concerning for abscess of neck Secondary to a thyroglossal duct infection. Admit to medical Keep n.p.o. after midnight Gentle IV fluids LR at 100 mL/h Continue antibiotics with Unasyn 3 g IV every 6 hours Continue to hold apixaban. Last dose was 01/19/2025 AM Remainder of plan as above PG Care Time/CCT Total # of Minutes Spent Total Time Spent with Patient: Total time spent is greater than 50% in coordination of care (as documented) at patient's floor/unit and/or counseling patient: Coding Level of Care Code 67566 INT INP/OBS CARE MIN Diagnoses Thyroglossal duct infection K14.8 Abscess of neck L02.11 Lung cancer C34.91 Laterality: right Lung location: unspecified part of lung FISH (obstructive sleep apnea) G47.33 (3) Lung cancer Laterality: right Lung location: unspecified part of lung Qualified Code(s): C34.91 - Malignant neoplasm of unspecified part of right bronchus or lung
[2025-01-19 20:49] LABS: Adenovirus PCR Not Detected (NotDetected); Bordetella parapertussis PCR Not Detected (NotDetected); Bordetella pertussis PCR Not Detected (NotDetected); Chlamydia pneumoniae PCR Not Detected (NotDetected); Coronavirus 229E PCR Not Detected (NotDetected); Coronavirus CoV-2 (COVID19)PCR Not Detected (NotDetected); Coronavirus HKU1 PCR Not Detected (NotDetected); Coronavirus NL63 PCR Not Detected (NotDetected); Coronavirus OC43PCR Not Detected (NotDetected); Human Metapneumovirus PCR Not Detected (NotDetected); Influenza A PCR Not Detected (NotDetected); Influenza B PCR Not Detected (NotDetected); Mycoplasma pneumoniae PCR Not Detected (NotDetected); Parainfluenza Virus 1 PCR Not Detected (NotDetected); Parainfluenza Virus 2 PCR Not Detected (NotDetected); Parainfluenza Virus 3 PCR Not Detected (NotDetected); Parainfluenza Virus 4 PCR Not Detected (NotDetected); Respiratory Syncytial VirusPCR Not Detected (NotDetected); Rhinovirus/Enterovirus PCR Not Detected (NotDetected)
[2025-01-19] MEDS ORDERED: ALBUTEROL 0.083% NEBU SOLN 3 ML VIAL INH PRN (22:48)
[2025-01-19] MEDS ORDERED: ALBUT/IPRATROP 3MG/0.5MG NEB 3 ML VIAL NEB PRN (22:48)
[2025-01-19] MEDS ORDERED: ONDANSETRON INJ 2 MG/ML 2 ML VIAL IV PRN (22:48)
[2025-01-19] MEDS ORDERED: ACETAMINOPHEN 325 MG TAB PO PRN (22:48)
[2025-01-19] MEDS ORDERED: POLYETHYLENE (MIRALAX) 17 GM PACK PO PRN (22:48)
--- NOTE | 2025-01-19 23:05 | ENT Consultation ---
Date of Consultation January 19, 2025 Assessment & Plan (1) Abscess of neck: 1. Admit Patient for IV Antibiotic therapy (Cefepime given.) IV Unasyn or IV Clindamycin would give broad spectrum - suspecting this to be a skin / staph origin. 2. NPO after Midnight for Surgery tomorrow. 3. Plan for Incision & Drainage of Anterior Neck Abscess tomorrow. 4. Manage patient's medical issues with HTN and RIGHT Lung CA being the most important issues of her multiple medical problems. Present on Admission?: Yes (2) Thyroglossal duct infection: Present on Admission?: Yes History of Present Illness Reason for Consultation: ANTERIOR NECK MASS. Requesting Physician: Shaw Aaron MD - [facility] Attending Physician: Sarah Rodriguez DO History of Present Illness Patient is a 79 yo Female - whose Anterior Midline NECK - soft tissue has become TENDER, swollen and Red since Sunday (16 JANUARY 2025). She has KNOWN that this is a cyst on the front of her neck for a couple of years now - being told that this was a known THYROGLOSSAL DUCT CYST. The patient admits to that she will intermittently squeeze /trying to "POP" the long-time palpable Soft Tissue CYST of the midline neck - just superior to the Larynx. She attempted to "POP" it again - over the weekend and was unsuccessful. The Anterior Neck Skin then began to enlarge & swell - and Over the last 48 hours it has become incre asingly red, swollen, tender. She denies any fevers, difficulty breathing, difficulty swallowing. She has lung cancer and is currently getting chemotherapy. Her next treatment is tomorrow. She has a history of pulmonary embolism and is anticoagulated on Eliquis. Patient went to her primary care visit with the medical group today who then referred her to the hospital the emergency department for evaluation recognizing this was a soft tissue infection process that appears to be turning into an abscess. Patient DENIES any airway issues without any breathing problems. Patient DENIES any swallowing issues and has been taking normal diet prior to admission. Patient has a history of smoking/tobacco use. She is undergoing chemotherapy for RIGHT LOWER LOBE - NON-Small Cell Lung cancer. Allergies Allergy/AdvReac Type Severity Reaction Status Date / Time atorvastatin Allergy Unknown MUSLCE Verified 01/19/25 15:39 ACHES clopidogrel Allergy Unknown HEADACHE Verified 01/19/25 15:39 lisinopril Allergy Unknown TONGUE Verified 01/19/25 15:39 SWELLING gemfibrozil [From Lopid] Allergy Verified 01/19/25 15:39 Home Medications Medication Instructions Recorded Confirmed Type Oxygen Home #1 ea 01/22/23 01/19/25 History Petite rollator walker #1 ea 03/08/23 01/19/25 Rx mirtazapine 7.5 mg tablet 7.5 mg PO HS #90 tabs 03/26/23 01/19/25 Rx apixaban 5 mg tablet 5 mg PO BID 08/20/23 01/19/25 History ferrous sulfate 325 mg (65 mg 325 mg PO DAILY #100 tabs 11/01/23 01/19/25 Rx iron) tablet albuterol sulfate 2.5 mg/3 mL 2.5 mg (3 mL) inhalation QID PRN 01/29/24 01/19/25 Rx (0.083 %) solution for nebulization shortness of breath or wheezing #180 mL furosemide 20 mg tablet 20 mg PO Q OTHER DAY 10/10/24 01/19/25 History potassium chloride 20 mEq 20 meq PO Q OTHER DAY 10/10/24 01/19/25 History tablet,extended release atenolol 50 mg tablet 50 mg PO DAILY #90 tabs 10/13/24 01/19/25 Rx amlodipine 2.5 mg tablet 2.5 mg PO DAILY #30 tabs 11/05/24 01/19/25 Rx fluticasone fur. 200 mcg-umeclid 1 inh inhalation DAILY #60 ea 11/05/24 01/19/25 Rx 62.5 mcg-vilant 25 mcg inhalat.powder (Trelegy Ellipta) omeprazole 20 mg capsule,delayed 20 mg PO DAILY #90 caps 12/12/24 01/19/25 Rx release dexamethasone 4 mg tablet 4 mg PO DIRECTED 01/19/25 01/19/25 History voriconazole 200 mg tablet 200 mg PO DAILY 01/19/25 01/19/25 History Patient History Medical History Bilateral leg edema Abnormal mammogram Multiple pulmonary nodules Surgical History S/P LEEP (loop electrosurgical excision procedure) H/O wrist surgery LEFT S/P appendectomy S/P cardiac cath no stents S/P colonoscopy S/P cholecystectomy History of bronchoscopy 10/09/19, March 2022 Family History Mother Coronary heart disease Diabetes Cancer Uterus Enlarged heart Family/Other Breast cancer cousin Sister Breast cancer Father Leukemia Denies family history of Ovarian cancer Prostate cancer Myocardial infarction Colorectal cancer Social History Smoking Status: Former smoker Tobacco Type: Cigarettes Age Started Using Tobacco: 19; Age Quit Using Tobacco: 78; packs per day: 0.5; Second Hand Exposure: Yes (Both parents smoked ); Do You Dip or Chew Tobacco: No; Hx Alcohol Use: No Hx Substance Use: No Preferred Language: Lithuanian Communication Ability: Effective Visual Impairment: Limited Hearing Ability: Normal Chipper Operator Required: No Beliefs That Will Affect Care: None marital status: Current Living Situation: Family Current Living Situation Comment: son and grandson live with patient current occupational status: retired How many Children do You have: 3 Feels Safe at Home: Yes Childhood Exposure to Second-Hand Smoke: Yes (mother) Diet: regular Diet Comment: Regular diet caffeine: Yes (coffee) during the past year weight has: decreased > 10 lbs Dental Care, Regularly: No Physical Activity Frequency: Does not Exercise Seatbelt Use: always Sunscreen Use: No Do you think of yourself as: straight/heterosexual Assistive Devices: BiPap, Denture - Upper, Denture - Lower, Glasses and Oxygen - Continuous Review of Systems Review of Systems: General: DENIES any fever, chills, night sweats. Head / Neurological: DENIES any vertigo, imbalance. NO diplopia, NO visual changes. DENIES Migraines or Headaches Ears: DENIES any otorrhea NO tinnitus Mild Hearing Loss - LEFT > Right.. Nose: DENIES epistaxis NO Nasal Congestion NO Post Nasal Drip Throat: NO Hoarseness NO swallowing issues. Respiratory: DENIES Shortness of Breath NO wheezing Cardiovascular: DENIES any irregular heart rate. DENIES Chest pain. GI: DENIES any nausea / emesis. DENIES any melena Musculoskeletal: NO weakness. Normal ROM of extremities. Hematologic / Immune: NO bleeding disorders or easy bruising. DENIES any anti-coagulation. DENIES Night sweats. DENIES Seasonal Allergies NO Tongue swelling Physical Exam Physical Exam: HEAD: Normocephalic CRANIAL NERVES: CN II - XII Intact NO Facial Weakness FACE: NO Erythema NO Rash Lips Normal EYES: EOMI PERRL Ears: External Ears - Normal Ext Aud. Canals - Cerumen Impaction Bilateral Tympanic Membranes - Not visible. Middle Ears - Not visible. - NO perforation. NOSE: External Dorsum - NO Deformity Septum - mostly Midline Turbinate - Normal shape & mucosa - NO Polyps MOUTH: Dentition - Edentulous Floor of Mouth - CLEAR. NO Edema Hunter's Ducts normal Tongue - NO masses - NO Ulcers. OROPHARYNX: Tonsils Absent Uvula Midline NECK: Trachea Midline Anterior - Irregular Neck - Soft tissue mass. - Erythematous, FIRM - NOT Fluctuant. NO palpable adenopathy LUNGS: Clear to auscultation. CV: Regular Rate & Rhythm. NO murmurs, NO bruits ABDN: Soft, Good Bowel Sounds. NO masses, NO organomegally. EXTRs: Normal ROM - without any cyanosis, clubbing or edema. Results & Data Vital Signs (Past 12 Hours) Vital Signs Temp Pulse Pulse Resp BP BP Pulse Ox 01/19/25 22:30 83 22 132/62 94 01/19/25 22:00 81 21 122/66 95 01/19/25 21:00 87 21 147/81 H 93 01/19/25 20:30 86 23 150/68 H 95 01/19/25 20:11 85 19 142/70 H 98 01/19/25 20:01 81 20 142/70 H 93 01/19/25 19:37 82 01/19/25 19:36 82 28 H 147/67 H 95 01/19/25 19:14 161/81 H 01/19/25 18:00 36.7 C 92 H 20 183/83 H 91 O2 Del Method O2 Flow Rate 01/19/25 22:30 Nasal Cannula 3 01/19/25 22:00 Nasal Cannula 3 01/19/25 21:00 Nasal Cannula 3 01/19/25 20:30 Nasal Cannula 3 01/19/25 20:11 Room Air 01/19/25 20:01 Nasal Cannula 3 01/19/25 19:37 01/19/25 19:36 Nasal Cannula 3 01/19/25 19:14 01/19/25 18:00 Nasal Cannula 2 Laboratory Results WBC = 12.51 Hgb = 10.9 Hct = 34.2 Diagnostic Findings Soft Tissue Neck CT 01/19/25 19:06 EXAM: CT Neck With Intravenous Contrast INDICATION: The patient has noted a cyst on her neck intermittently over the last few years and Sunday it burst. TECHNIQUE: Axial computed tomography images of the neck with intravenous contrast. Sagittal and coronal reformatted images were created and reviewed. This CT exam was performed using one or more of the following dose reduction techniques: automated exposure control, adjustment of the mA and/or kV according to patient size, and/or use of iterative reconstruction technique. CONTRAST: 90ml of Optiray 320 was administered intravenously. COMPARISON: No relevant prior studies available. FINDINGS: Oropharynx: No abnormality noted. No significant tonsillar enlargement. No peritonsillar abscess. Hypopharynx: No abnormality noted. Larynx: No abnormality noted. Normal epiglottis. Trachea: No abnormality noted. Retropharyngeal space: No abnormality noted. Submandibular/parotid glands: No abnormality noted. Glands are normal in size. Thyroid: No abnormality noted. Bones/joints: No acute changes. Soft tissues: In the midline subcutaneous fat is a irregular multiloculated cyst with adjacent fluid consistent with rupture measuring in total 3.9 cm long by 1.6 cm AP by approximately 1.9 cm transverse. The process is centered at the level of the thyroid cartilage and inseparable from the midline platysma. There is edema of the surrounding fat. There is some edema subjacent to the platysma at the level of the thyroid cartilage. No radiopaque foreign body or soft tissue gas. Vasculature: There is moderate atherosclerosis of the proximal cervical internal carotid arteries. There is approximately 50% stenosis on the left and less than 25% stenosis on the right. Lymph nodes: No abnormality noted. No lymphadenopathy. Lung apices: No significant abnormality noted. Pleural space: Centrilobular emphysema noted. There is right apical pleural and parenchymal scarring. No apical pneumothorax. IMPRESSION: There is an inflamed midline subcutaneous irregular cyst centered at the thyroid cartilage. This most likely reflects a thyroglossal duct cyst with superimposed infection and partial rupture. Electronically signed by Nilsa Clarke 01-19-2025 7:40 PM PG Care Time/CCT Total # of Minutes Spent Total Time Spent with Patient: Total time spent is greater than 50% in coordination of care (as documented) at patient's floor/unit and/or counseling patient: Coding Level of Care Code 21046 IN/OBS CONSULT LVL 3,45M Diagnoses Abscess of neck L02.11 Thyroglossal duct infection K14.8
[2025-01-19] MEDS: LACTATED RINGER'S 1,000 ML IV SCH (23:20)
[2025-01-20] MEDS: AMPICILLIN/SULBACTAM SOD 3,000 MG/100 ML BAG IV SCH (04:21)
[2025-01-20 07:20] LABS: Hematocrit (blood only) 29.1 % (37.0-47.0); Hemoglobin 9.1 g/dl (12.0-16.0); Mean Corpuscular Hemoglobin 26.2 pg (25.0-34.0); Mean Corpuscular Hgb Conc 31.3 g/dL (32.0-36.0); Mean Corpuscular Volume 83.9 fL (80.0-100.0); Mean Platelet Volume 9.4 fL (9.4-12.4); Platelet Count 329 K/uL (130-400); RDW Coefficient of Variation 14.1 % (11.5-14.5); RDW Standard Deviation 42.8 fL (36.4-46.3); Red Blood Count 3.47 M/uL (4.20-5.40); White Blood Count 9.67 K/ul (4.8-10.8)
[2025-01-20 07:38] LABS: Prothrombin Time 10.9 Seconds (9.0-12.0)
[2025-01-20 07:54] LABS: Creatinine Clr Calc Pharmacy 53.8 ml/min
[2025-01-20 07:55] LABS: Calcium 8.9 mg/dl (8.6-10.3); Potassium 4.5 mmol/L (3.5-5.1)
--- NOTE | 2025-01-20 08:07 | Hospitalist Progress Note ---
Date of Service January 20, 2025 Assessment & Plan (1) Thyroglossal duct infection: (2) Abscess of neck: (3) Lung cancer: (4) FISH (obstructive sleep apnea): Plan 79-year-old female PMHx adenocarcinoma of lung, history of PE on Eliquis, FISH, HTN, COPD, and history of CVA presenting for a cyst on her neck that has started to cause her pain approximately 4 days [employer]. ED evaluation reveals leukocytosis 12.51, H&H 10.9/34.2; CMP grossly WNL with exception glucose 156; lactate 1.7; procalcitonin 0.16; BioFire pending; soft tissue neck CT reveals inflamed midline subcutaneous irregular cyst centered at thyroid cartilage most likely reflecting a thyroglossal duct cyst with superimposed infection and partial rupture; CXR irregular R basilar pulmonary opacity. Patient was provided with 500 mL NSS, cefepime 2 g IV, and albuterol nebulizer x 1 in ED. #Acute infection of thyroglossal duct cyst/Abscess of neck Known cyst for approximately 1 year, started to become enlarged and irritated approximately 4 days [employer]; was seen by PCP who recommended being evaluated in ER. Patient without difficulties breathing or swallowing at time of admission and took her pills without issues this morning WBC 12.5k, hgb 10.9. lactic acid wnl CT soft tissue neck with inflamed midline subcutaneous irregular cyst centered at thyroid cartilage (thyroglossal duct cyst with superimposed infection partial rupture) Unasyn IV continued. WBC improved, 9.6k. Afebrile. Blood cx pending from admission ENT consulted, Dr Rhodes NPO for I&D today when able IVF continued, decreased rate given weight 42kg. Tylenol IV, dose x 1 now Eliquis on HOLD (note, dx PE in July 2023 w/ her hx lung ca), monitor to resume as able Monitor labs/exam on repeat #Lung cancer/COPD/MAC (pulmonary) Adenocarcinoma of right lung, follows with Dr. Powers and receives immunotherapy every 3 weeks. Diagnosed with MAC 06/2021, follows with [facility] pulmonology. On azithromycin M/W/F for COPD. Most recent pulmonology visit 10/09/2024, most recent oncology visit 10/08/2024. Received DuoNeb in ED. Due for chemotherapy 01/20/2025- Please discuss with Dr. Powers or consult heme/onc for plan moving forward with this ([facility]) -- asked navigator to reach out to help coordinate CXR w/ irregular R basilar pulmonary opacity Unasyn as above, monitor Continue inhalers, azithro 500mg M/W/F RESUMED FOR TOMORROW Duonebs changed to q6h scheduled, albuterol available qid prn if needed On 2L at rest, 4L with exertion at baseline, BiPAP at night (as able w/ above) #History of PE-diagnosed 07/2023; Eliquis HELD on admission for above and will monitor for Lovenox/resume as able. #FISH-BiPAP nightly; 2L O2 at rest, 4L O2 with exertion Continue BiPAP + O2 per patient's baseline #HTN- Amlodipine, atenolol; Furosemide every other day (unclear when last taken, HELD at admission but will monitor to given 4/2 on IVF for above) #FLORENCIA- Iron supplementation; H/H at admission 10.9/34.2 #GERD- Omeprazole substituted for protonix once daily while inpatient #Mood- stable, remains on remeron daily also for appetite DVT proph: eliquis on hold above and will plan to resume as able. If needs to remain on hold would consider once daily lovenox until able to resume Dispo: continued inpatient stay for I&D with ENT today. Hopeful dc next 24-48hrs pending cx and response to treatment. Will need f/u [facility] at [place]. Admission and Anticipated Discharge Date Admission Date: January 19, 2025 Supervising Physician Co-Signing Physician Notes The patient was not seen by me. The chart was reviewed. Case discussed with ROBERTH Parra. Agree with assessment and plan Subjective Eval this morning, sitting in bed. Took pills this morning without issue. NPO for possible I&D however patient said provider last night said either today vs tomorrow. Denied anything for need for pain but was agreeable to tylenol, will order dose IV now. Reports is on 2L NC at all times at home, to get her chemo today and will have navigator reach out to [facility] oncology to help with rescheduling. +erythema/tenderness on exam but stable on abx at this time. Physical Exam Physical Exam: General: 79yo female laying in bed, thin, cachectic but NAD, on NC to maintain sats HEENT: +anterior neck mass, +erythema, +firm, +tenderness, no stridor Resp: diminished in the bases with faint expiratory wheezing, on 4L NC CV: RRR, no significant m/r/g, no pitting edema/calf tenderness Psych: AOx3, cooperative with exam Results & Data Results & Data Vital Signs (Past 12 Hours) Vital Signs Temp Pulse Pulse Resp BP BP BP 01/20/25 07:46 36.8 C 84 16 131/71 01/19/25 22:51 01/19/25 22:51 36.6 C 86 16 159/77 H 01/19/25 22:30 83 22 132/62 01/19/25 22:00 81 21 122/66 01/19/25 21:00 87 21 147/81 H 01/19/25 20:30 86 23 150/68 H 01/19/25 20:11 85 19 142/70 H Pulse Ox O2 Del Method O2 Flow Rate 01/20/25 07:46 93 Nasal Cannula 4 01/19/25 22:51 Nasal Cannula 4 01/19/25 22:51 96 Nasal Cannula 4 01/19/25 22:30 94 Nasal Cannula 3 01/19/25 22:00 95 Nasal Cannula 3 01/19/25 21:00 93 Nasal Cannula 3 01/19/25 20:30 95 Nasal Cannula 3 01/19/25 20:11 98 Room Air Laboratory Results 01/20/25 01/19/25 01/19/25 Range/Units 06:51 19:52 19:49 WBC 9.67 (4.8-10.8) K/ul RBC 3.47 L (4.20-5.40) M/uL Hgb 9.1 L (12.0-16.0) g/dl Hct 29.1 L (37.0-47.0) % MCV 83.9 (80.0-100.0) fL MCH 26.2 (25.0-34.0) pg MCHC 31.3 L (32.0-36.0) g/dL RDW Std Deviation 42.8 (36.4-46.3) fL RDW Coeff of Tani 14.1 (11.5-14.5) % Plt Count 329 (130-400) K/uL MPV 9.4 (9.4-12.4) fL Immature Gran % (Auto) % Neut % (Auto) % Lymph % (Auto) % Taliaferro % (Auto) % Eos % (Auto) % Baso % (Auto) % Neut # (Auto) (1.40-6.50) K/uL Lymph # (Auto) (1.20-3.40) K/uL Taliaferro # (Auto) (0.11-0.59) K/uL Eos # (Auto) (0.00-0.50) K/uL Baso # (Auto) (0.00-0.20) K/uL Immature Gran # (Auto) (0.01-0.20) K/uL PT 10.9 (9.0-12.0) Seconds INR 1.0 (0.9-1.1) Sodium 141 (136-145) mmol/L Potassium 4.5 (3.5-5.1) mmol/L Chloride 103 (98-107) mmol/L Carbon Dioxide 35 H (21-32) mmol/L Anion Gap 3 (3-11) BUN 11 (6-23) mg/dl Creatinine 0.58 L D (0.6-1.2) mg/dl Est Cr Clr Drug Dosing 53.8 ml/min eGFR 92.57 BUN/Creatinine Ratio 19.0 (10-20) Glucose 83 (70-99(Fasting)) mg/dl Lactate 1.7 (0.4-2.0) mmol/L Calcium 8.9 (8.6-10.3) mg/dl Total Bilirubin (0.2-1.0) mg/dl AST (13-39) U/L ALT (7-52) U/L Alkaline Phosphatase (34-104) U/L Total Protein (6.0-8.3) gm/dl Albumin (3.4-5.0) gm/dl Globulin (2.5-4.0) gm/dl Albumin/Globulin Ratio (0.9-2) Procalcitonin (0-0.5) ng/ml Adenovirus (PCR) Not Detected (NotDetected) B. pertussis DNA (PCR) Not Detected (NotDetected) B.parapertussis DNA PCR Not Detected (NotDetected) C. pneumoniae DNA (PCR) Not Detected (NotDetected) Coronavirus OC43 (PCR) Not Detected (NotDetected) Coronavirus HKU1 (PCR) Not Detected (NotDetected) Coronavirus 229E (PCR) Not Detected (NotDetected) SARS-CoV-2 (PCR) Not Detected (NotDetected) Coronavirus NL63 (PCR) Not Detected (NotDetected) Human Metapneumovir PCR Not Detected (NotDetected) Influenza Type A (PCR) Not Detected (NotDetected) Influenza Type B (PCR) Not Detected (NotDetected) M. pneumoniae (PCR) Not Detected (NotDetected) Parainfluenza 1 (PCR) Not Detected (NotDetected) Parainfluenza 2 (PCR) Not Detected (NotDetected) Parainfluenza 3 (PCR) Not Detected (NotDetected) Parainfluenza 4 (PCR) Not Detected (NotDetected) RSV (PCR) Not Detected (NotDetected) Entero/Rhino (PCR) Not Detected (NotDetected) 01/19/25 Range/Units 18:16 WBC 12.51 H (4.8-10.8) K/ul RBC 4.10 L (4.20-5.40) M/uL Hgb 10.9 L (12.0-16.0) g/dl Hct 34.2 L (37.0-47.0) % MCV 83.4 (80.0-100.0) fL MCH 26.6 (25.0-34.0) pg MCHC 31.9 L (32.0-36.0) g/dL RDW Std Deviation 42.8 (36.4-46.3) fL RDW Coeff of Tani 13.9 (11.5-14.5) % Plt Count 453 H (130-400) K/uL MPV 9.4 (9.4-12.4) fL Immature Gran % (Auto) 0.8 % Neut % (Auto) 81.8 % Lymph % (Auto) 12.0 % Taliaferro % (Auto) 5.0 % Eos % (Auto) 0.2 % Baso % (Auto) 0.2 % Neut # (Auto) 10.23 H (1.40-6.50) K/uL Lymph # (Auto) 1.50 (1.20-3.40) K/uL Taliaferro # (Auto) 0.62 H (0.11-0.59) K/uL Eos # (Auto) 0.03 (0.00-0.50) K/uL Baso # (Auto) 0.03 (0.00-0.20) K/uL Immature Gran # (Auto) 0.10 (0.01-0.20) K/uL PT (9.0-12.0) Seconds INR (0.9-1.1) Sodium 139 (136-145) mmol/L Potassium 4.0 (3.5-5.1) mmol/L Chloride 100 (98-107) mmol/L Carbon Dioxide 31 (21-32) mmol/L Anion Gap 8 (3-11) BUN 18 (6-23) mg/dl Creatinine 1.09 (0.6-1.2) mg/dl Est Cr Clr Drug Dosing 28.6 ml/min eGFR 52.00 BUN/Creatinine Ratio 16.5 (10-20) Glucose 156 H (70-99(Fasting)) mg/dl Lactate (0.4-2.0) mmol/L Calcium 9.4 (8.6-10.3) mg/dl Total Bilirubin 0.3 (0.2-1.0) mg/dl AST 16 (13-39) U/L ALT 12 (7-52) U/L Alkaline Phosphatase 101 (34-104) U/L Total Protein 8.1 (6.0-8.3) gm/dl Albumin 4.2 (3.4-5.0) gm/dl Globulin 3.9 (2.5-4.0) gm/dl Albumin/Globulin Ratio 1.1 (0.9-2) Procalcitonin 0.16 (0-0.5) ng/ml Adenovirus (PCR) (NotDetected) B. pertussis DNA (PCR) (NotDetected) B.parapertussis DNA PCR (NotDetected) C. pneumoniae DNA (PCR) (NotDetected) Coronavirus OC43 (PCR) (NotDetected) Coronavirus HKU1 (PCR) (NotDetected) Coronavirus 229E (PCR) (NotDetected) SARS-CoV-2 (PCR) (NotDetected) Coronavirus NL63 (PCR) (NotDetected) Human Metapneumovir PCR (NotDetected) Influenza Type A (PCR) (NotDetected) Influenza Type B (PCR) (NotDetected) M. pneumoniae (PCR) (NotDetected) Parainfluenza 1 (PCR) (NotDetected) Parainfluenza 2 (PCR) (NotDetected) Parainfluenza 3 (PCR) (NotDetected) Parainfluenza 4 (PCR) (NotDetected) RSV (PCR) (NotDetected) Entero/Rhino (PCR) (NotDetected) Diagnostic Findings Soft Tissue Neck CT 01/19/25 19:06 EXAM: CT Neck With Intravenous Contrast INDICATION: The patient has noted a cyst on her neck intermittently over the last few years and Sunday it burst. TECHNIQUE: Axial computed tomography images of the neck with intravenous contrast. Sagittal and coronal reformatted images were created and reviewed. This CT exam was performed using one or more of the following dose reduction techniques: automated exposure control, adjustment of the mA and/or kV according to patient size, and/or use of iterative reconstruction technique. CONTRAST: 90ml of Optiray 320 was administered intravenously. COMPARISON: No relevant prior studies available. FINDINGS: Oropharynx: No abnormality noted. No significant tonsillar enlargement. No peritonsillar abscess. Hypopharynx: No abnormality noted. Larynx: No abnormality noted. Normal epiglottis. Trachea: No abnormality noted. Retropharyngeal space: No abnormality noted. Submandibular/parotid glands: No abnormality noted. Glands are normal in size. Thyroid: No abnormality noted. Bones/joints: No acute changes. Soft tissues: In the midline subcutaneous fat is a irregular multiloculated cyst with adjacent fluid consistent with rupture measuring in total 3.9 cm long by 1.6 cm AP by approximately 1.9 cm transverse. The process is centered at the level of the thyroid cartilage and inseparable from the midline platysma. There is edema of the surrounding fat. There is some edema subjacent to the platysma at the level of the thyroid cartilage. No radiopaque foreign body or soft tissue gas. Vasculature: There is moderate atherosclerosis of the proximal cervical internal carotid arteries. There is approximately 50% stenosis on the left and less than 25% stenosis on the right. Lymph nodes: No abnormality noted. No lymphadenopathy. Lung apices: No significant abnormality noted. Pleural space: Centrilobular emphysema noted. There is right apical pleural and parenchymal scarring. No apical pneumothorax. IMPRESSION: There is an inflamed midline subcutaneous irregular cyst centered at the thyroid cartilage. This most likely reflects a thyroglossal duct cyst with superimposed infection and partial rupture. ACT 112: N/A Electronically signed by Nilsa Clarke 01-19-2025 7:40 PM Chest X-Ray 01/19/25 19:22 EXAM: Radiograph of the Chest 1 View INDICATION: Shortness of breath TECHNIQUE: Frontal view of the chest. COMPARISON: No relevant prior studies available. FINDINGS: Lungs and pleural spaces: There is an irregular parenchymal opacity in the right lung base measuring 6.1 cm long by 4.5 cm transverse. There is scarring in the right lung apex. Mild right apical pleural thickening. No layering pleural effusion. No pneumothorax. Heart: Shape and configuration within normal limits allowing for technique. Mediastinum: Normal contour. Bones/joints: No fracture, erosion or dislocation. Soft tissues: No abnormality noted. No radiopaque foreign body noted. Upper abdomen: No abnormality noted. IMPRESSION: Irregular right basilar pulmonary opacity. While this could reflect pneumonia, neoplasm not excluded. ACT 112: N/A Electronically signed by Nilsa Clarke 01-19-2025 7:41 PM PG Care Time/CCT Total # of Minutes Spent Total Time Spent with Patient: Total time spent is greater than 50% in coordination of care (as documented) at patient's floor/unit and/or counseling patient: Coding Level of Care Code 72243 SUB INP/OBS CARE 3/50MIN Diagnoses Thyroglossal duct infection K14.8 Abscess of neck L02.11 Lung cancer C34.91 Laterality: right Lung location: unspecified part of lung FISH (obstructive sleep apnea) G47.33 (3) Lung cancer Laterality: right Lung location: unspecified part of lung Qualified Code(s): C34.91 - Malignant neoplasm of unspecified part of right bronchus or lung
[2025-01-20] MEDS ORDERED: FERROUS SULFATE 325 MG TAB PO SCH (09:00)
[2025-01-20] MEDS ORDERED: NON-FORMULARY MEDICATION (Fluticasone-Umeclidin-Vilanter [Trelegy Ellipta] 200-62.5-25 mcg INH SCH (09:00)
[2025-01-20] MEDS: amLODIPine BESYLATE 5 MG TAB PO SCH (09:33)
[2025-01-20] MEDS: ATENOLOL 50 MG TABLET PO SCH (09:34)
[2025-01-20] MEDS: VORICONAZOLE 200 MG TABLET PO SCH (09:35)
[2025-01-20] MEDS: FLUTICASONE FUROATE 200MCG 14 PUFFS/INHALER INH SCH (09:35)
[2025-01-20] MEDS: UMECLIDINIUM/VILANTEROL 62.5/25MCG 7 PUFFS/INHALER INH SCH (09:35)
[2025-01-20] MEDS: PANTOprazole 40 MG TAB PO SCH (09:35)
[2025-01-20] MEDS ORDERED: CEFEPIME 1000MG 1,000 MG/10 ML SYR IV SCH (10:00)
[2025-01-20] MEDS: AZITHROMYCIN 250 MG TAB PO STA (12:13)
[2025-01-20] MEDS: ACETAMINOPHEN 1,000 MG/100 ML VIAL IV STA (12:13)
[2025-01-20] MEDS: ALBUT/IPRATROP 3MG/0.5MG NEB 3 ML VIAL NEB SCH (12:27)
[2025-01-20] MEDS ORDERED: PROPOFOL IV EMULSION 10 MG/ML 20 ML VIAL IV ONE (14:14)
[2025-01-20] MEDS ORDERED: ONDANSETRON INJ 2 MG/ML 2 ML VIAL ONE (14:14)
[2025-01-20] MEDS ORDERED: DEXAMETHASONE SOD INJ 4 MG/ML VIAL ONE (14:14)
[2025-01-20] MEDS ORDERED: GLYCOPYRROLATE 0.2 MG/ML VIAL ONE (14:14)
[2025-01-20] MEDS ORDERED: LIDOCAINE 2% 2 ML VIAL/AMP(20MG/ML) INFIL ONE (14:14)
[2025-01-20] MEDS ORDERED: MIDAZOLAM HCL 1 MG/ML 2ML VIAL ONE (14:15)
[2025-01-20] MEDS ORDERED: ROCURONIUM BROMIDE 10 MG/ML 5 ML VIAL IV ONE (14:15)
[2025-01-20] MEDS ORDERED: fentaNYL citrate PF 100 MCG/2 ML VIAL ONE (14:15)
[2025-01-20] MEDS ORDERED: SUGAMMADEX SODIUM 200 MG/2 ML VIAL IV ONE (14:19)
--- NOTE | 2025-01-20 15:57 | Anesthesiology Consultation ---
Date of Service January 20, 2025 Assessment & Plan Chart Review Chart Review: Acceptable Risk for Surgery and Patient NOT seen in Pre Admission Testing Consults Requested none History Surgery Operation Date: 01/20/25 09:10 Proposed Procedures p Incision and Drainage Anterior Neck Mass - Nicolas Rhodes MD s Bilateral Examination of Ears with Removal of Impacted Cerumen - Nicolas Rhodes MD Height/Weight Height: 5 ft 1 in Weight: 42.6 kg Allergies Allergy/AdvReac Type Severity Reaction Status Date / Time atorvastatin Allergy Unknown MUSLCE Verified 01/19/25 15:39 ACHES clopidogrel Allergy Unknown HEADACHE Verified 01/19/25 15:39 lisinopril Allergy Unknown TONGUE Verified 01/19/25 15:39 SWELLING gemfibrozil [From Lopid] Allergy Verified 01/19/25 15:39 Medications Home Medications Medication Instructions Recorded Confirmed Last Taken Oxygen Home #1 ea 01/22/23 01/19/25 Unknown Petite rollator walker #1 ea 03/08/23 01/19/25 Unknown mirtazapine 7.5 mg tablet 7.5 mg PO HS #90 tabs 03/26/23 01/19/25 Unknown apixaban 5 mg tablet 5 mg PO BID 08/20/23 01/19/25 Unknown ferrous sulfate 325 mg (65 mg 325 mg PO DAILY #100 tabs 11/01/23 01/19/25 Unknown iron) tablet albuterol sulfate 2.5 mg/3 mL 2.5 mg (3 mL) inhalation QID PRN 01/29/24 01/19/25 Unknown (0.083 %) solution for nebulization shortness of breath or wheezing #180 mL furosemide 20 mg tablet 20 mg PO Q OTHER DAY 10/10/24 01/19/25 Unknown potassium chloride 20 mEq 20 meq PO Q OTHER DAY 10/10/24 01/19/25 Unknown tablet,extended release atenolol 50 mg tablet 50 mg PO DAILY #90 tabs 10/13/24 01/19/25 Unknown amlodipine 2.5 mg tablet 2.5 mg PO DAILY #30 tabs 11/05/24 01/19/25 Unknown fluticasone fur. 200 mcg-umeclid 1 inh inhalation DAILY #60 ea 11/05/24 01/19/25 Unknown 62.5 mcg-vilant 25 mcg inhalat.powder (Trelegy Ellipta) omeprazole 20 mg capsule,delayed 20 mg PO DAILY #90 caps 12/12/24 01/19/25 Unknown release dexamethasone 4 mg tablet 4 mg PO DIRECTED 01/19/25 01/19/25 Unknown voriconazole 200 mg tablet 200 mg PO DAILY 01/19/25 01/19/25 Unknown Active Medications Generic Name Dose Route Start Last Admin Trade Name Zainab RABAGON Reason Stop Dose Admin Albuterol 3 ml 01/20/25 13:00 01/20/25 12:27 Albut/Ipratrop 3mg/0.5mg Neb 3 Ml Vial NEB 02/19/25 12:59 3 ml Q6R JERRY Administration Protocol Amlodipine Besylate 2.5 mg 01/20/25 09:00 01/20/25 09:33 Amlodipine Besylate 5 Mg Tab PO 02/19/25 08:59 2.5 mg DAILY JERRY Administration Atenolol 50 mg 01/20/25 09:00 01/20/25 09:34 Atenolol 50 Mg Tablet PO 02/19/25 08:59 50 mg DAILY JERRY Administration Fluticasone Furoate 1 puffs 01/20/25 09:00 01/20/25 09:35 Fluticasone Furoate 200mcg 14 Puffs/Inhaler INH 02/19/25 08:59 1 puffs DAILY JERRY Administration Ampicillin Sodium/Sulbactam Sodium 3,000 mg in 100 mls @ 200 mls/hr 01/20/25 04:00 01/20/25 10:01 Unasyn IV 01/30/25 03:59 Infused Q6H JERRY Infusion Pantoprazole Sodium 40 mg 01/20/25 09:00 01/20/25 09:35 Pantoprazole 40 Mg Tab PO 02/19/25 08:59 40 mg DAILY JERRY Administration Umeclidinium/Vilanterol 1 puffs 01/20/25 09:00 01/20/25 09:35 Umeclidinium/Vilanterol 62.5/25mcg 7 Puffs/Inhaler INH 02/19/25 08:59 1 puffs DAILY JERRY Administration Voriconazole 200 mg 01/20/25 09:00 01/20/25 09:35 Voriconazole 200 Mg Tablet PO 02/19/25 08:59 200 mg DAILY JERRY Administration NPO Date Last Intake of Fluids: 01/20/25 Time Last Intake of Fluids: 09:00 Date Last Intake of Solids: 01/19/25 Time Last Intake of Solids: 23:59 Past Medical History Medical History Bilateral leg edema Abnormal mammogram Multiple pulmonary nodules Past Family History Family History Mother Coronary heart disease Diabetes Cancer Uterus Enlarged heart Family/Other Breast cancer cousin Sister Breast cancer Father Leukemia Denies family history of Ovarian cancer Prostate cancer Myocardial infarction Colorectal cancer Past Surgical History Surgical History S/P LEEP (loop electrosurgical excision procedure) H/O wrist surgery LEFT S/P appendectomy S/P cardiac cath no stents S/P colonoscopy S/P cholecystectomy History of bronchoscopy 10/09/19, March 2022 Social History Smoking Status: Former smoker tobacco type: cigarettes Do You Dip or Chew Tobacco: No Hx Alcohol Use: No Hx Substance Use: No Physical Exam Vital Signs Last Vital Signs Temp 36.9 C 01/20/25 15:22 Pulse 79 01/20/25 15:22 Resp 18 01/20/25 15:22 BP 164/66 H 01/20/25 15:22 Pulse Ox 96 01/20/25 15:22 O2 Del Method Room Air 01/20/25 15:22 O2 Flow Rate 3 01/20/25 12:28 Testing Laboratory Results 01/20/25 06:51 01/20/25 06:51 PT 10.9 Seconds (9.0-12.0) 01/20/25 06:51 INR 1.0 (0.9-1.1) 01/20/25 06:51
[2025-01-20] MEDS ORDERED: fentaNYL citrate PF 100 MCG/2 ML VIAL IV PRN (15:59)
[2025-01-20] MEDS ORDERED: ATROPINE SULFATE 0.1 MG/ML 10ML SYR IV PRN (15:59)
[2025-01-20] MEDS ORDERED: ePHEDrine sulfate 50 MG/ML AMP IV PRN (15:59)
--- NOTE | 2025-01-20 16:22 | History & Physical Bridge Note ---
Date of Service January 20, 2025 History & Physical Bridge Note I have examined the patient, reviewed the History & Physical and in the interval since the performance of the History & Physical I have noted the following changes of clinical significance: no changes noted
[2025-01-20] MEDS: LIDOCAINE 1%/EPINEPHRINE 1:100,000 50 ML VIAL ONE (16:58)
--- NOTE | 2025-01-20 17:43 | Post Operative Brief Note ---
PG Immediate Post Op with CF Date of Surgery January 20, 2025 Pre & Post Diagnosis Operation Date: 01/20/25 09:10 Pre-Op Diagnosis: Thyroglossal Duct Cyst infection Post-Op Diagnosis: Anterior Neck Abscess - secondary to Infected SEBACEOUS CYST. I identified the patient and participated in the time-out.: Yes Procedure Operation Date: 01/20/25 09:10 Actual Procedures p Incision and Drainage Anterior Neck Mass(Not Applicable) - Nicolas Rhodes MD, FACS s Bilateral Examination of Ears with Removal of Impacted Cerumen(Bilateral) - Nicolas Rhodes MD, FACS Surgeon Nicolas Rhodes MD, FACS Charge Loader None. Estimated Blood Loss 5 Findings Consistent with Post-Op Diagnosis 1. Bilateral Cerumen Impactions of the External Auditory Canals. 2. Anterior Neck Abscess - Secondary to Infected SEBACEOUS CYST. Fluids IV FLUIDS GIVEN: 1100 cc LR. Ext Blood Loss: 5 cc Specimens Specimen Description: Culture 1: Anterior Neck Abscess #1 Culture 2: Anterior Neck Abscess #2 A. Sebaceous Cyst Wall Anesthesia Type General Complications none Disposition Accompanied Patient To Recovery: Yes Disposition: Recovery Room
--- NOTE | 2025-01-20 17:59 | Operative Report ---
PG Post Operative Report Pre & Post Diagnosis Operation Date: 01/20/25 09:10 Pre-Op Diagnosis: Thyroglossal Duct Cyst Infection Post-Op Diagnosis: Anterior Neck Abscess secondary to Infected SEBACEOUS CYST I identified the patient and participated in the time-out.: Yes Procedure Operation Date: 01/20/25 09:10 Actual Procedures 1. Incision and Drainage Anterior Neck Abscess - Nicolas Rhodes MD 2. Bilateral Examination of Ears with Removal of Impacted Cerumen (Bilateral) - Nicolas Rhodes MD Surgeon Nicolas Rhodes MD, FACS Channel Layer None. Estimated Blood Loss 5 Findings Consistent with Post-Op Diagnosis 1. Cerumen Impactions Bilateral of the external auditory canals. 2. Infected anterior Neck Sebaceous Cyst that became an Anterior Neck Abscess. Purulence and Sebum expressed from the anterior neck abscess. Fluids IV Fluids given: 1100 ml LR Est. Blood Loss: 5 ml Specimens Cultures from the Anterior Neck Abscess Cavity x 2. Pathology Specimen: Anterior Wall of the Sebaceous CYST. Drains 1/4 " Sravanthi Drain. Anesthesia Type General Complications none Disposition Accompanied Patient To Recovery: Yes Disposition: Recovery Room Indications Enlarging erythematous and tender anterior Neck mass - consistent with an infected CYST. Description of Procedure The patient was brought to the operating room and transferred to the operating table. The patient identification correct site and surgical safety timeout [facility] was completed with the entire operating team. With all in agreement general anesthesia was then induced. After safe and successful oral trach intubation the airway was secured the patient remained in the supine position and the anterior neck was then prepped with isopropyl alcohol wipe and 1 cc of 1% lidocaine with 1-1000 epinephrine solution was infiltrated at the inferior aspect of the anterior neck abscess at the midline and at the most fluctuant area of the skin. The LEFT ear was placed in surgical position. The operating microscope was then used with microinstrumentation to remove a cerumen impaction plug that 100% filled the external auditory canal. This was then removed successfully and there is some irritation of the skin skin of the external auditory canal that some minor bleeding that he easily controlled. Tympanic membranes intact without retraction or perforation. The middle ear was clear without effusion. A temporary packing was placed in the left external auditory canal to control the bleeding and this was moistened with ofloxacin 0.3% drops. The patient head was gently turned towards the left to place the RIGHT ear in surgical position. Cerumen impaction was then also removed a likewise manner and the canal was dry tympanic membranes intact and middle ear was clear. The patient's head was gently turned back to the midline in neutral position. The anterior neck upper chest and lower face were then prepped with ChloraPrep solution followed by sterile draping. A 1 and half centimeter incision was placed at the most inferior aspect of the anterior neck swelling where the local had been injected. Once incision was carried through the epidermis blunt dissection with a Crile hemostat entered into the abscess cavity neck and released the purulent contents which also noted to have a fair amount of sebum and keratin present classically indicative of a sebaceous cyst cavity. Two (2) Culture SWABS were used to obtain cultures - taken directly from this abscess cavity and sent to the laboratory for processing. Further gentle probing with the Crile and manipulation to express more of the purulence and then finally larger amounts of sebaceous sebum contents until it was all evacuated. 100 cc of saline irrigation was then used to washout the abscess cavity following which 1/4 inch [place] drain was then seated directly into the abscess cavity brought out through the incision and secured to the skin with simple 4-0 nylon sutures to promote a conduit for the abscess cavity to continue draining. Fluffs and a Kerlix dressing were then wrapped around the neck for wound dressing. Draping was removed and the temporary packing of the left ear was removed from the external auditory canal. The patient was then reversed from general anesthesia, extubated in the operating room, transferred to the hospital bed and then transferred ported to the postanesthesia care unit (PACU) in stable condition. I attest to the content of the Intraoperative Record and any orders documented therein. Any exceptions are noted below.
--- NOTE | 2025-01-20 18:02 | Anesthesiology Progress Note ---
Date of Service January 20, 2025 Anesthesia Post Procedure Vital Signs Vital Signs: Temp Pulse Pulse Pulse Resp BP BP 01/20/25 17:55 81 18 115/55 L 01/20/25 17:45 77 22 107/49 L 01/20/25 17:37 36.0 C L 76 13 131/58 L 01/20/25 15:22 36.9 C 79 18 164/66 H 01/20/25 12:28 70 18 01/20/25 08:00 01/20/25 07:46 36.8 C 84 16 131/71 01/19/25 22:51 01/19/25 22:51 36.6 C 86 16 01/19/25 22:30 83 22 132/62 01/19/25 22:00 81 21 01/19/25 21:00 87 21 147/81 H 01/19/25 20:30 86 23 150/68 H 01/19/25 20:11 85 19 01/19/25 20:01 81 20 142/70 H 01/19/25 19:37 82 01/19/25 19:36 82 28 H 147/67 H 01/19/25 19:14 161/81 H BP Pulse Ox O2 Del Method O2 Flow Rate 01/20/25 17:55 88 L Room Air 01/20/25 17:45 97 Oxymask 6 01/20/25 17:37 100 Oxymask 6 01/20/25 15:22 96 Room Air 01/20/25 12:28 96 Nasal Cannula 3 01/20/25 08:00 Nasal Cannula 3 01/20/25 07:46 93 Nasal Cannula 4 01/19/25 22:51 Nasal Cannula 4 01/19/25 22:51 159/77 H 96 Nasal Cannula 4 01/19/25 22:30 94 Nasal Cannula 3 01/19/25 22:00 122/66 95 Nasal Cannula 3 01/19/25 21:00 93 Nasal Cannula 3 01/19/25 20:30 95 Nasal Cannula 3 01/19/25 20:11 142/70 H 98 Room Air 01/19/25 20:01 93 Nasal Cannula 3 01/19/25 19:37 01/19/25 19:36 95 Nasal Cannula 3 01/19/25 19:14 Pain Intensity Anterior Neck: Pain Intensity: 4 Transfer of Care Handoff Completed per policy Notes Mental Status: alert / awake / arousable Patient Amnestic to Procedure: Yes Nausea / Vomiting: adequately controlled Pain: adequately controlled Airway Patency, RR, SpO2: stable & adequate BP & HR: stable & adequate Hydration State: stable & adequate Anesthetic Complications: no major complications apparent and Pt Satisfied with anesthetic care
[2025-01-20] MEDS: OFLOXACIN 0.3% 75 DROPS/5 ML BTL ONE (18:26)
[2025-01-20] MEDS: ACETAMINOPHEN 1,000 MG/100 ML VIAL IV PRN (20:35)
[2025-01-20] MEDS: MIRTAZAPINE TAB 15 MG TAB PO SCH (20:37)
[2025-01-20] MEDS: MELATONIN 3 MG TAB PO PRN (20:37)
[2025-01-20] MEDS: OFLOXACIN 0.3% 75 DROPS/5 ML BTL OTL SCH (20:41)
[2025-01-21 06:53] LABS: Basophils # (auto) 0.01 K/uL (0.00-0.20); Basophils % (auto) 0.2 %; Hematocrit (blood only) 31.2 % (37.0-47.0); Hemoglobin 9.6 g/dl (12.0-16.0); Immature Granulocytes # (auto) 0.09 K/uL (0.01-0.20); Immature Granulocytes % (auto) 1.9 %; Lymphocytes # (auto) 0.51 K/uL (1.20-3.40); Lymphocytes % (auto) 10.9 %; Mean Corpuscular Hemoglobin 26.2 pg (25.0-34.0); Mean Corpuscular Hgb Conc 30.8 g/dL (32.0-36.0); Mean Corpuscular Volume 85.2 fL (80.0-100.0); Mean Platelet Volume 9.4 fL (9.4-12.4); Monocytes # (auto) 0.06 K/uL (0.11-0.59); Monocytes % (auto) 1.3 %; Neutrophils % (auto) 85.7 %; Platelet Count 360 K/uL (130-400); RDW Coefficient of Variation 13.6 % (11.5-14.5); RDW Standard Deviation 42.6 fL (36.4-46.3); Red Blood Count 3.66 M/uL (4.20-5.40); White Blood Count 4.67 K/ul (4.8-10.8)
[2025-01-21 07:16] LABS: Ferritin 41.3 ng/ml (8-388)
--- NOTE | 2025-01-21 07:35 | XRay Report ---
EXAM: XR chest 1V portable CLINICAL HISTORY: follow up TECHNIQUE: An X-ray image of the chest is obtained in AP projection. COMPARISON: 01/19/2025 FINDINGS: Pulmonary Parenchyma: Redemonstration of ill defined patch of consolidation/opacity in the right lung base with possible juxta phrenic peak sign. Right apical scarring redemonstrated. Unchanged mild right apical pleural thickening. Minimal blunting of the left costophrenic angle seen. Heart and Mediastinum: Heart size and shape are normal. No mediastinal widening or masses. The right hilum appears prominent. Bony Thorax: Bony thorax appears intact without fractures or deformities. Soft Tissues: Soft tissues overlying the chest wall are unremarkable. IMPRESSION: 1. Redemonstration of ill defined patch of consolidation/opacity in the right lung base with possible juxta phrenic peak sign. 2. Minimal blunting of the left costophrenic angle seen. 3. Clinical correlation and CT scan chest is advised if clinically indicated. 4. No significant interval changes. Electronically signed by Chele Weston 01-21-2025 07:35 AM
[2025-01-21 07:37] LABS: BUN Creatinine Ratio 18.7 (10-20); Calcium 8.9 mg/dl (8.6-10.3); Creatinine Clr Calc Pharmacy 41.6 ml/min; Magnesium 1.7 mg/dl (1.7-2.4); Potassium 4.4 mmol/L (3.5-5.1)
--- NOTE | 2025-01-21 07:56 | Hospitalist Progress Note ---
Date of Service January 21, 2025 Assessment & Plan (1) Thyroglossal duct infection: (2) Abscess of neck: (3) Lung cancer: (4) FISH (obstructive sleep apnea): Plan 79-year-old female PMHx adenocarcinoma of lung, history of PE on Eliquis, FISH, HTN, COPD, and history of CVA presenting for a cyst on her neck that has started to cause her pain approximately 4 days OBSTETRICS TECH. WBC 12.5k, lactic 1.7, procal 0.16. Biofire negative. CXR w/ irregular R basilar pulmonary opactiy CT soft tissue neck as outlined below s/p I&D and ongoing abx/drain with need for f/u #Anterior Neck Abscess secondary to Infected SEBACEOUS CYST Known cyst for approximately 1 year, started to become enlarged and irritated approximately 4 days OBSTETRICS TECH; was seen by PCP who recommended being evaluated in ER. WBC 12.5k w/ normal lactic CT soft tissue neck noting inflamed subcutaneous irregular cyst centered at thyroid cartilage ENT consulted, Dr Rhodes s/p Incision and Drainage Anterior Neck Abscess on 01/20, b/l cerumen removal with Dr Rhodes. EBL 5cc Cx from OR pending -- GS w/ many/moderate WBC and moderate gram positive cocci -- monitor final cx/sensitivities Unasyn IV continued WBC trended down on repeat, now low Diet to be advanced as tolerated Tylenol, pain control DVT proph: eliquis held for procedure, per ENT can be resumed - ordered Per ENT, drain removal and possible dc tomorrow. Infected sebaceous cyst will need f/u as will recur and will need addressed before becomes infected #Lung cancer/COPD/MAC (pulmonary) Adenocarcinoma of right lung, follows with Dr. Powers and receives immunotherapy every 3 weeks. Diagnosed with MAC 06/2021, follows with [facility] pulmonology. On azithromycin M/W/F for COPD. Most recent pulmonology visit 10/09/2024, most recent oncology visit 10/08/2024. On 2L at rest, 4L with exertion at baseline, BiPAP at night (as able w/ above) Due for chemotherapy 01/20/2025- Asked CM Navigator to reach out to Dr Powers from [facility] [address] to coordinate chemo reschedule im follow up and will need f/u CXR w/ irregular R basilar pulmonary opacity On Unasyn, Azithro M/W/F resumed as takes and changed duonebs to q6h scheduled and breathing stable and will monitor #History of PE-diagnosed 07/2023; Eliquis HELD on admission but RESUMED as above #FLORENCIA On Iron supplementation; H/H at admission 10.9/34.2 PO iron on hold, Fe panel w/ LOW Iron 19, trans % at LOW 6% and ferritin only 41.3 Venofer 300mg IV x 1 ordered -consider repeat in AM but hgb stable on IVF and improved from yesterday #FISH-BiPAP nightly; 2L O2 at rest, 4L O2 with exertion and have been ordered #HTN- Amlodipine, atenolol; Furosemide every other day (unclear when last taken, HELD at admission but will monitor to given 4/2 on IVF for above and GIVE 20mg PO x 1 for 4/2 and schedule q2d for now #GERD- Omeprazole substituted for protonix once daily while inpatient #Mood- stable, remains on remeron daily also for appetite DVT proph: eliquis resumed Dispo; continued inpatient stay on IV abx and ENT to remove drain in AM 01/22. Hopeful dc following drain removal pending status, will need f/u at dc and coordination w/ oncology for chemo as outlined. CM to follow up on dc needs Admission and Anticipated Discharge Date Admission Date: January 19, 2025 Supervising Physician Co-Signing Physician Notes The patient was not seen by me. The chart was reviewed. Case discussed with ROBERTH Parra. Agree with assessment and plan Subjective Eval this morning, doing well. Pain controlled. Drain in place. Tolerating diet, would like advanced. Will order Iron studies low/IV ordered, typically on PO but never got infusions per patient. Discussed dc tomorrow after drain removal Questions/concerns addressed at this time. Physical Exam 2 Physical Exam: General: 79yo female laying in bed, thin, cachectic but NAD, on NC to maintain sats HEENT: dressing c/d/i to anterior neck, drain in place, no stridor, decreased tenderness to palpation Resp: diminished in the bases with bibasilar crackles, faint expiratory wheezing (improved with deep breath), on 3L NC CV: RRR, no significant m/r/g, no pitting edema/calf tenderness Psych: AOx3, cooperative with exam Results & Data Results & Data Vital Signs (Past 12 Hours) Vital Signs Temp Pulse Resp BP Pulse Ox O2 Del Method O2 Flow Rate 01/21/25 07:30 79 18 93 Nasal Cannula 3 01/21/25 03:00 36.4 C L 16 113/63 96 Nasal Cannula 3 01/20/25 23:00 36.7 C 75 16 100/59 L 96 Nasal Cannula 3 01/20/25 21:30 36.4 C L 80 18 111/58 L 93 Nasal Cannula 3 01/20/25 20:40 Nasal Cannula 3 01/20/25 20:24 36.6 C 72 18 136/54 L 100 Nasal Cannula 2 01/20/25 20:12 74 16 93 Nasal Cannula 2 Laboratory Results 01/21/25 06:11 01/21/25 06:11 Diagnostic Findings Chest X-Ray 01/21/25 07:00 EXAM: XR chest 1V portable CLINICAL HISTORY: follow up TECHNIQUE: An X-ray image of the chest is obtained in AP projection. COMPARISON: 01/19/2025 FINDINGS: Pulmonary Parenchyma: Redemonstration of ill defined patch of consolidation/opacity in the right lung base with possible juxta phrenic peak sign. Right apical scarring redemonstrated. Unchanged mild right apical pleural thickening. Minimal blunting of the left costophrenic angle seen. Heart and Mediastinum: Heart size and shape are normal. No mediastinal widening or masses. The right hilum appears prominent. Bony Thorax: Bony thorax appears intact without fractures or deformities. Soft Tissues: Soft tissues overlying the chest wall are unremarkable. IMPRESSION: 1. Redemonstration of ill defined patch of consolidation/opacity in the right lung base with possible juxta phrenic peak sign. 2. Minimal blunting of the left costophrenic angle seen. 3. Clinical correlation and CT scan chest is advised if clinically indicated. 4. No significant interval changes. Electronically signed by Chele Weston 01-21-2025 07:35 AM PG Care Time/CCT Total # of Minutes Spent Total Time Spent with Patient: Total time spent is greater than 50% in coordination of care (as documented) at patient's floor/unit and/or counseling patient: Coding Level of Care Code 45459 SUB INP/OBS CARE 3/50MIN Diagnoses Thyroglossal duct infection K14.8 Abscess of neck L02.11 Lung cancer C34.91 Laterality: right Lung location: unspecified part of lung FISH (obstructive sleep apnea) G47.33 (3) Lung cancer Laterality: right Lung location: unspecified part of lung Qualified Code(s): C34.91 - Malignant neoplasm of unspecified part of right bronchus or lung
[2025-01-21] MEDS: APIXABAN 5 MG TABLET PO SCH (09:55)
[2025-01-21] MEDS: IRON SUCROSE 300 MG in SODIUM CHLORIDE 0.9% 250 ML IV ONE (09:58)
[2025-01-21] MEDS: PNEUMOCOCCAL VACCINE (PCV20) 20-VAL CONJ-DIP CRM/PF 0.5 ML SYR IM ONE (11:33)
[2025-01-21] MEDS: FUROSEMIDE 20 MG TAB PO SCH (11:35)
[2025-01-22 07:16] VITALS: BP 118/67; TEMP 98.6
[2025-01-22 07:25] VITALS: RESP 18
[2025-01-22 07:31] LABS: Hematocrit (blood only) 26.2 % (37.0-47.0); Hemoglobin 8.2 g/dl (12.0-16.0); Mean Corpuscular Hemoglobin 26.2 pg (25.0-34.0); Mean Corpuscular Hgb Conc 31.3 g/dL (32.0-36.0); Mean Corpuscular Volume 83.7 fL (80.0-100.0); Mean Platelet Volume 9.3 fL (9.4-12.4); Platelet Count 318 K/uL (130-400); RDW Standard Deviation 42.7 fL (36.4-46.3); Red Blood Count 3.13 M/uL (4.20-5.40); White Blood Count 7.32 K/ul (4.8-10.8)
[2025-01-22 07:48] LABS: BUN Creatinine Ratio 23.6 (10-20); Calcium 8.7 mg/dl (8.6-10.3); Creatinine Clr Calc Pharmacy 43.3 ml/min; Magnesium 1.6 mg/dl (1.7-2.4); Potassium 4.1 mmol/L (3.5-5.1)
--- NOTE | 2025-01-22 08:35 | Hospitalist Progress Note ---
Date of Service January 22, 2025 Assessment & Plan (1) Thyroglossal duct infection: (2) Abscess of neck: (3) Lung cancer: (4) FISH (obstructive sleep apnea): Plan 79-year-old female PMHx adenocarcinoma of lung, history of PE on Eliquis, FISH, HTN, COPD, and history of CVA presenting for a cyst on her neck that has started to cause her pain approximately 4 days [employer]. WBC 12.5k, lactic 1.7, procal 0.16. Biofire negative. CXR w/ irregular R basilar pulmonary opactiy CT soft tissue neck as outlined below s/p I&D and ongoing abx/drain with need for f/u #Anterior Neck Abscess secondary to Infected SEBACEOUS CYST Known cyst for approximately 1 year, started to become enlarged and irritated approximately 4 days [employer]; was seen by PCP who recommended being evaluated in ER. WBC 12.5k w/ normal lactic CT soft tissue neck noting inflamed subcutaneous irregular cyst centered at thyroid cartilage ENT consulted, Dr Rhodes s/p Incision and Drainage Anterior Neck Abscess on 01/20, b/l cerumen removal with Dr Rhodes. EBL 5cc Cx from OR pending -- GS w/ many/moderate WBC and moderate gram positive cocci -- monitor final cx/sensitivities Unasyn IV continued WBC trended down on repeat, now low Diet to be advanced as tolerated Tylenol, pain control DVT proph: eliquis held for procedure, per ENT can be resumed - ordered Per ENT, drain removal and possible dc tomorrow. Infected sebaceous cyst will need f/u as will recur and will need addressed before becomes infected Hgb lower but VSS, Does have bump CO2 on labs, down to 93% on usual 2L and ?if over treatment. Will need to monitor for abdominal pain or sx GI bleed. IF stable could consider repeat labs end of this week for dc? Eval this morning, tolerating diet, drain removed. Vitals stable, no CP/SOB. Hgb low but no belly pain/epigastric or reflux. Reports gets labs before treatment w/ Dr Powers and does admit not always taking her PO iron due to constipation. Rec to take/bowel regimen and [place] prior to tx to ensure labs stable end of the week but if any belly pain/bleeding or dizziness/SOB to return. Questions/concerns addressed at this time. #Lung cancer/COPD/MAC (pulmonary) Adenocarcinoma of right lung, follows with Dr. Powers and receives immunotherapy every 3 weeks. Diagnosed with MAC 06/2021, follows with [facility] pulmonology. On azithromycin M/W/F for COPD. Most recent pulmonology visit 10/09/2024, most recent oncology visit 10/08/2024. On 2L at rest, 4L with exertion at baseline, BiPAP at night (as able w/ above) Due for chemotherapy 01/20/2025- Asked CM Navigator to reach out to Dr Powers from [facility] to coordinate chemo reschedule im follow up and will need f/u CXR w/ irregular R basilar pulmonary opacity On Unasyn, Azithro M/W/F resumed as takes and changed duonebs to q6h scheduled and breathing stable and will monitor #History of PE-diagnosed 07/2023; Eliquis HELD on admission but RESUMED as above #FLORENCIA On Iron supplementation; H/H at admission 10.9/34.2 PO iron on hold, Fe panel w/ LOW Iron 19, trans % at LOW 6% and ferritin only 41.3 Venofer 300mg IV x 1 ordered -consider repeat in AM but hgb stable on IVF and improved from yesterday #FISH-BiPAP nightly; 2L O2 at rest, 4L O2 with exertion and have been ordered #HTN- Amlodipine, atenolol; Furosemide every other day (unclear when last taken, HELD at admission but will monitor to given 4/2 on IVF for above and GIVE 20mg PO x 1 for 4/2 and schedule q2d for now #GERD- Omeprazole substituted for protonix once daily while inpatient #Mood- stable, remains on remeron daily also for appetite DVT proph: eliquis resumed Dispo; continued inpatient stay on IV abx and ENT to remove drain in AM 01/22. Hopeful dc following drain removal pending status, will need f/u at dc and coordination w/ oncology for chemo as outlined. CM to follow up on dc needs Admission and Anticipated Discharge Date Admission Date: January 19, 2025 Subjective Eval this morning, tolerating diet, drain removed. Vitals stable, no CP/SOB. Hgb low but no belly pain/epigastric or reflux. Reports gets labs before treatment w/ Dr Powers and does admit not always taking her PO iron due to constipation. Rec to take/bowel regimen and [place] get labs prior to tx to ensure labs stable end of the week but if any belly pain/bleeding or dizziness/SOB to return. Questions/concerns addressed at this time. Results & Data Results & Data Vital Signs (Past 12 Hours) Vital Signs Temp Pulse Pulse Resp BP Pulse Ox O2 Del Method 01/22/25 07:37 Nasal Cannula 01/22/25 07:25 76 18 93 Nasal Cannula 01/22/25 07:15 37 C 66 16 118/67 94 Nasal Cannula O2 Flow Rate 01/22/25 07:37 2 01/22/25 07:25 3 01/22/25 07:15 3 PG Care Time/CCT Total # of Minutes Spent Total Time Spent with Patient: Total time spent is greater than 50% in coordination of care (as documented) at patient's floor/unit and/or counseling patient: Coding Diagnoses Thyroglossal duct infection K14.8 Abscess of neck L02.11 Lung cancer C34.91 Laterality: right Lung location: unspecified part of lung FISH (obstructive sleep apnea) G47.33 (3) Lung cancer Laterality: right Lung location: unspecified part of lung Qualified Code(s): C34.91 - Malignant neoplasm of unspecified part of right bronchus or lung
--- NOTE | 2025-01-22 09:33 | Ears,Nose,Throat Progress Note ---
Date of Service January 22, 2025 Assessment & Plan (1) Sebaceous cyst: Plan: This anterior NECK abscess was secondary to anterior SEBACEOUS CYST aka EPIDERMAL INCLUSION CYST. Present on Admission?: Yes Plan PLAN: 1. DEEPA Drain is removed. 2. Continue UNASYN IV until Discharged and then use AUGMENTIN 875 mg BID for 10 days for Discharge / Outpatient antibiotic. 3. May REMOVE Current Neck Dressing and then Start Cleaning the Anterior / Inferior Neck Incision with Soap & Water - then Apply Topical Antibiotic Ointment (Neosporin / Bacitracin ) to Incision Site TWICE A DAY until Healed. 4. May apply just a LARGE RECTANGULAR BANDAID after cleaning TWICE a Day. 5. As this is a SEBACEOUS CYST aka EPIDERMAL INCLUSION CYST it will need to be treated definitively in the near future - about 6 months. Patient should have Follow-Up in ENT in 2 - 4 weeks AFTER Hospital Discharge. Admission and Anticipated Discharge Date Admission Date: January 19, 2025 Anticipated date of discharge: 01/22/25 Subjective Patient with Anterior NECK Abscess - secondary to infected EPIDERMAL INCLUSION CYST or SEBACEOUS CYST. Incised & drained on January 20. Patient on UNASYN IV. Patient also on anticoagulation therapy. Currently on Chemo for Lung CA. Neck Dressing was changed last PM by me with serosanguinous drainage from 10/25" Rosser Drain. Patient had UNcomplicated night. NO issues. Taking oral Diet - Ambulatory. Physical Exam Physical Exam: Patient alert & Oriented. VS - Stable BP 118/67 AFEBRILE - (37 C) Neck - Dressing removed. - Anterior neck swelling / mass has decreased only some since I&D - but the Skin ERYTHEMA has RESOLVED> - NO fluctuance of the Anterior Skin mass / cyst. Scant Output overnight. Dressing was mostly CLEAN. 1/4" Deepa Drain is REMOVED today. Incision site cleaned with Betadine and CLEAN Dressing applied. CULTURES: ABscess Cavity Culture - NO GROWTH to date. Blood Cultures - NO GROWTH to date. PATHOLOGY: Abscess cavity contents - still pending. LABS: WBC dropped from 12.5 -> 7.3 Results & Data Vital Signs (Past 12 Hours) Vital Signs Temp Pulse Pulse Resp BP Pulse Ox O2 Del Method 01/22/25 07:37 Nasal Cannula 01/22/25 07:25 76 18 93 Nasal Cannula 01/22/25 07:15 37 C 66 16 118/67 94 Nasal Cannula O2 Flow Rate 01/22/25 07:37 2 01/22/25 07:25 3 01/22/25 07:15 3 PG Care Time/CCT Total # of Minutes Spent Total Time Spent with Patient: Total time spent is greater than 50% in coordination of care (as documented) at patient's floor/unit and/or counseling patient: Coding Level of Care Code None Diagnoses Sebaceous cyst L72.3
--- NOTE | 2025-01-22 09:47 | Discharge Summary ---
Discharge Summary Date of Service January 22, 2025 Principal Dx & Hospital Course #1 = Principal Diagnosis (1) Thyroglossal duct infection: (2) Abscess of neck: (3) Lung cancer: (4) FISH (obstructive sleep apnea): Plan 79-year-old female PMHx adenocarcinoma of lung, history of PE on Eliquis, FISH, HTN, COPD, and history of CVA presenting for a cyst on her neck that has started to cause her pain approximately 4 days [employer]. WBC 12.5k, lactic 1.7, procal 0.16. Biofire negative. CXR w/ irregular R basilar pulmonary opactiy CT soft tissue neck as outlined below s/p I&D and ongoing abx/drain with need for f/u #Anterior Neck Abscess secondary to Infected SEBACEOUS CYST Known cyst for approximately 1 year, started to become enlarged and irritated approximately 4 days [employer]; was seen by PCP who recommended being evaluated in ER. WBC 12.5k w/ normal lactic CT soft tissue neck noting inflamed subcutaneous irregular cyst centered at thyroid cartilage ENT consulted, Dr Rhodes s/p Incision and Drainage Anterior Neck Abscess (secondary to infected sebaceous cyst) on 01/20, b/l cerumen removal with Dr Rhodes. EBL 5cc Cx from OR pending at id. GS w/ many/moderate WBC and moderate gram positive cocci -- will need f/u at dc Provided Unasyn IV inpatient, WBC normalized. Back on usual O2. Provided IV tylenol for pain control and eliquis resumed post-op and ENT removed armando drain 01/22 and should have outpatient follow up in 2-3 weeks with ENT as likely to recur and will need addressed before becomes reinfected. Ear drops for next 3 days per ENT, can stop Sunday. Sent on Augmentin for total 10 day course. Notable did provide dose Venofer IV for iron deficiency anemia and hgb did note to 8.2 prior to dc but suspected dilutional aspect from IVF given stable BP and no abdominal pain or bleeding reported. Do note PO iron on home med list but was discussed with patient and does not take regularly. Rec to take and f/u with PCP and oncology and reports gets labs prior to oncology appt and will call for repeat CBC in next couple days and discussed if any bleeding or abd pain to return. #Lung cancer/COPD/MAC (pulmonary) Adenocarcinoma of right lung, follows with Dr. Powers and receives immunotherapy every 3 weeks. Which was due 01/20 but post-poined w/ inpatient hospitalization/infection but repeat appt made prior to dc. Also dx MAC in 2020 w/ [facility] follow up and continued on Azithro M/W/F for COPD . On 2L at rest w/ 4L exertion at baseline w/ BiPAP at night. Ordered but not able to kelly bipap w/ above but improved and can resume. Back to usual O2 and continued on home inhalers/nebs. CXR on admit w/ irregular R basilar pulm opacity and sent on Augmentin above. No increased SOB/sputum production reported. Was given 2gm IV mag prior to dc #History of PE-diagnosed 07/2023; Eliquis HELD on admission but RESUMED as above. No sx from such at present #IDAOn Iron supplementation; H/H at admission 10.9/34.2 but suspect dehydrated w/ poor PO intake from above PO iron on hold, Fe panel obtained w/ LOW Iron 19, trans % at LOW 6% and ferritin only 41.3. Venofer 300mg IV x 1 ordered and see discussion above/no bleeding but rec to continue usual PO iron at dc and increase compliance. Consideration for outpt Venofer infusions to be considered as reports has not had in the past and issues w/ constipation w/ PO use. #FISH-BiPAP nightly; 2L O2 at rest, 4L O2 with exertion and have been ordered #HTN- Amlodipine, atenolol; Furosemide every other day #GERD- Omeprazole substituted for protonix once daily while inpatient #Mood- stable, remains on remeron daily also for appetite Notes For Next Care Provider Ensure follow up from cultures from ENT s/p I&D however per Dr Rhodes, Augmentin for 10 day course, Ofloxacin drops to left ear until Sunday. Rec ENT f/u 2-3 week, will need definitive tx cyst to prevent recurrance infection Hgb 8.2 prior to dc but no bleeding reported and rec to repeat in next week/compliance w/ PO Iron -- Consider Venofer infusions if unable to tolerate PO with constipation Medication Changes From Visit Augmentin BID x 10 day total course Oflaxacin drops L ear x 3 days Admission HPI Per Admitting Provider 79-year-old female PMHx adenocarcinoma of lung, history of PE on Eliquis, FISH, HTN, COPD, and history of CVA presenting for a cyst on her neck that has started to cause her pain approximately 4 days [employer]. Patient was evaluated by PCP on the day of arrival and PCP recommended she be evaluated in ER. Patient states that the cyst has been in the front of her neck for the past "few weeks". On occasion she is able to pop the cyst and it would drain, however, over the weekend [employer]ER she tried to pop the cyst and was unsuccessful. The prior 48 hours leading to ER evaluation, the area became more red, swollen, and tender. Patient states that she felt as though the cyst had popped internally and this is what caused her concern because this is never happened before. Patient states that she does have some tenderness at the location of the cyst as well as bleeding down into sternum and left side of neck, but this is only when touching the area. States that she is having no difficulties with swallowing and no difficulties with breathing. Denies any SOB or cough. Denies fever or chills. States that the week [employer]ER she was sick with nausea and vomiting, but this has since subsided. Otherwise denying chest pain, palpitations, abdominal pain, N/V/D/C, numbness/tingling, syncope, weakness, URI symptoms, or LUTS. States that she has never had this happen before, but she does occasionally have the cyst fill up. Patient took her Eliquis the morning of arrival but has not taken her evening dose. ED evaluation reveals leukocytosis 12.51, H&H 10.9/34.2; CMP grossly WNL with exception glucose 156; lactate 1.7; procalcitonin 0.16; BioFire pending; soft tissue neck CT reveals inflamed midline subcutaneous irregular cyst centered at thyroid cartilage most likely reflecting a thyroglossal duct cyst with superimposed infection and partial rupture; CXR irregular R basilar pulmonary opacity. Patient was provided with 500 mL NSS, cefepime 2 g IV, and albuterol nebulizer x [address] see Dr[address] Rodriguez's attestation for adjustments/additions to treatment plan. Admission Exam Per Admitting Provider General: No acute distress, thin Skin: Warm and dry Head: Normocephalic, atraumatic Eyes: PERRL, conjunctivae clear, sclera non-icteric ENT: External ear and ear canal without swelling; nose atraumatic; good dentition, tongue normal appearance, pharynx normal Neck: Trachea midline; significant fullness in the anterior mid neck, slight deviation towards left side; erythematous and tender, no streaking; no drainage noted; not fixed (see picture) Cardio: RRR, no M/G/R, S1 and S2 normal Resp: No respiratory distress, slightly diminished breath sounds bilaterally, no wheezing appreciated during time of admission (s/p albuterol nebulizer) Abdomen: Soft, symmetric, nontender; No masses or hepatosplenomegaly; Bowel sounds normoactive MSK: No deformities; pulses palpable and equal; no edema. Neuro: Awake, alert; Sensation intact bilaterally; CN grossly intact Psych: Appropriate mood and affect; good judgement and insight. 2 family members present in room at time of visit. Discharge Exam General: 79yo female laying in bed, thin, cachectic but NAD, on usual O2 HEENT: dressing c/d/i to anterior neck, drain removed this morning, dressing c/d/i, no stridor Resp: diminished in the bases with bibasilar crackles, faint expiratory wheezing (improved with deep breath), on 2L NC CV: RRR, no significant m/r/g, no pitting edema/calf tenderness Psych: AOx3, cooperative with exam Discharge Plan Discharge Items Patient Disposition: Home - Self-Care Reason For Visit: THYROGLOSSAL DUCT CYST INFECTION Discharge Diagnosis: Infected sebaceous cyst Condition on Discharge: Fair Goals: You have been hospitalized for an urgent problem which required surgery. During your stay at [facility], we have made an effort to correct the problem that brought you to the hospital while keeping you as comfortable as possible. Surgery and medications were used to bring your condition under control and your discharge instructions will include directions for any medications you should take after leaving the hospital. Please make sure to follow the advice of your surgeon regarding follow up with the surgeon and with your primary care provider. Activity: As commented below Non-emergency contact: Primary Care Provider, Surgeon and Oncologist Call non-emergency contact if: you have any medication questions, your symptoms worsen, your pain is not controlled, your pain is concerning for you, you have a fever, your wound has increased redness, your wound has increased drainage and your wound pain has increased Follow-up/Referrals: Becky Villalobos DO [Primary Care Provider] - 01/29/25 11:00 am Meng Powers MD [Outside Practitioners] - 01/27/25 10:45 am Nicolas Rhodes MD [Physician] - Diet: Heart Healthy Diet Texture: Easy to Chew Addtl Attending Provider Instructions: You have been hospitalized for abscess/infection to infected cyst on your neck. You have been treated with IV antibiotics and ENT was consulted and drained this and cultures are pending at discharge but given improvement with Unasyn IV we h ave converted to AUGMENTIN to take twice daily at discharge for another 8 days to complete 10 day course. Next dose is due TONIGHT. Ear drops to the LEFT ear twice daily until SUNDAY. You should have ongoing follow up with ENT at discharge for continued monitoring and likely removal of the cyst as this can come back. Please follow up with PCP in the next 7-[address] Powers has been alerted of your inpatient stay and your appointment has been scheduled for the 8th for follow up and reschedule of your chemo. Please call their office to repeat your blood counts at the end of the week or beginning of next week to ensure hemoglobin is stable and monitor for any bleeding or belly pain to return to the ER. Please return to the ER with any fever/chills, worsening pain/redness, difficulty swallowing, shortness of breath or for any other symptoms concerning for you. It has been a pleasure being a part of the medical team providing for you while you have been in the hospital. Take care! Addtl Welt Cutter Provider Instructions: Per ENT, Dr Rhodes: May REMOVE Current Neck Dressing and then Start Cleaning the incision with SOAP AND WATER, then apply over the counter topical antibiotic ointment with neosporin or bacitracin TWICE daily until healed May apply just a LARGE RECTANGULAR BANDAID after cleaning TWICE a Day. Please follow up with ENT in 2-4 weeks. Pending Studies at Discharge: Yes Studies:: Pathology, OR culture final Stand-Alone Forms: My [facility] [employer], Smoking Cessation Medications and DC Order Prescriptions: New ofloxacin [Ocuflox] 0.3 % Drops 5 drp OTL BID 3 Days Qty: 5 0RF Rx Instructions: TO LEFT EAR TWICE DAILY UNTIL 4/5 amoxicillin-pot clavulanate 875-125 mg tablet 1 tab PO BID 8 Days Qty: 16 0RF Continued mirtazapine 7.5 mg tablet 7.5 mg PO HS Qty: 90 1RF ferrous sulfate 325 mg (65 mg iron) tablet 325 mg PO DAILY Qty: 100 1RF albuterol sulfate 2.5 mg /3 mL (0.083 %) solution for nebulization 2.5 mg inhalation QID PRN (Reason: shortness of breath or wheezing) Qty: 180 1RF atenolol 50 mg tablet 50 mg PO DAILY Qty: 90 3RF Rx Instructions: 50 mg PO daily; omeprazole 20 mg capsule,delayed release(DR/EC) 20 mg PO DAILY Qty: 90 1RF (DME) Oxygen Home Liters Per Minute See Rx Instructions .ROUTE .MEDSUPPLY Qty: 1 Rx Instructions: Administer 2/L min into nostril continuous 2L at rest and please titrate up to 6L of oxygen at exercise apixaban 5 mg tablet 5 mg PO BID Rx Instructions: Take 2 tablets by mouth twice daily for 4 days, then take 1 tablet twice daily amlodipine 2.5 mg tablet 2.5 mg PO DAILY Qty: 30 2RF Trelegy Ellipta 200-62.5-25 mcg blister with device 1 inh inhalation DAILY Qty: 60 4RF potassium chloride 20 mEq tablet extended release 20 meq PO Q OTHER DAY furosemide 20 mg tablet 20 mg PO Q OTHER DAY voriconazole 200 mg tablet 200 mg PO DAILY dexamethasone 4 mg tablet 4 mg PO DIRECTED Rx Instructions: TAKE ONE TABLET BY MOUTH AT SUPPER NIGHT BEFORE TREATMENT AND ONE TABLET AT BREAKFAST DAY OF TREATMENT No Action (DME) Partha taylor See Rx Instructions .Route .MEDSUPPLY Qty: 1 0RF Rx Instructions: As directed Discharge Orders: Discharge Order (Routine); Ordered 01/22/25 Ordered By: Ban Acevedo Admission Data Admit Date/Time: 01/19/25 20:46 Attending Provider: Adebayo Blake Admit Provider: Sarah Rodriguez Primary Care Provider: Becky Villalobos Other Providers: Sarah Rodriguez; Katerin Keith; Roscoe Blanca; Lon Booker; Nicolas Rhodes; Lona Andres; Kris Wallis; Rosalio Martinez; Richard Pinedo; Adebayo Herzog; Ethan Muhammad II; Shawanda Diop; Temitope Muhammad Other Interventions: Discharge Summary Assessment (RN) Last Done: 01/22/25 10:28 Hospital Stay Data Consultations 01/19/25 20:19 ED Decision to Admit Stat 01/19/25 22:48 Consult Otolaryngology (Head and Neck) Routine Procedures Performed Operation Date: 01/20/25 09:10 Actual Procedures p Incision and Drainage Anterior Neck Mass(Not Applicable) - Nicolas Rhodes MD s Bilateral Examination of Ears with Removal of Impacted Cerumen(Bilateral) - Nicolas Rhodes MD Diagnostic Imagining Performed Soft Tissue Neck CT 01/19/25 19:06 EXAM: CT Neck With Intravenous Contrast INDICATION: The patient has noted a cyst on her neck intermittently over the last few years and Sunday it burst. TECHNIQUE: Axial computed tomography images of the neck with intravenous contrast. Sagittal and coronal reformatted images were created and reviewed. This CT exam was performed using one or more of the following dose reduction techniques: automated exposure control, adjustment of the mA and/or kV according to patient size, and/or use of iterative reconstruction technique. CONTRAST: 90ml of Optiray 320 was administered intravenously. COMPARISON: No relevant prior studies available. FINDINGS: Oropharynx: No abnormality noted. No significant tonsillar enlargement. No peritonsillar abscess. Hypopharynx: No abnormality noted. Larynx: No abnormality noted. Normal epiglottis. Trachea: No abnormality noted. Retropharyngeal space: No abnormality noted. Submandibular/parotid glands: No abnormality noted. Glands are normal in size. Thyroid: No abnormality noted. Bones/joints: No acute changes. Soft tissues: In the midline subcutaneous fat is a irregular multiloculated cyst with adjacent fluid consistent with rupture measuring in total 3.9 cm long by 1.6 cm AP by approximately 1.9 cm transverse. The process is centered at the level of the thyroid cartilage and inseparable from the midline platysma. There is edema of the surrounding fat. There is some edema subjacent to the platysma at the level of the thyroid cartilage. No radiopaque foreign body or soft tissue gas. Vasculature: There is moderate atherosclerosis of the proximal cervical internal carotid arteries. There is approximately 50% stenosis on the left and less than 25% stenosis on the right. Lymph nodes: No abnormality noted. No lymphadenopathy. Lung apices: No significant abnormality noted. Pleural space: Centrilobular emphysema noted. There is right apical pleural and parenchymal scarring. No apical pneumothorax. IMPRESSION: There is an inflamed midline subcutaneous irregular cyst centered at the thyroid cartilage. This most likely reflects a thyroglossal duct cyst with superimposed infection and partial rupture. ACT 112: N/A Electronically signed by Nilsa Clarke 01-19-2025 7:40 PM Chest X-Ray 01/19/25 19:22 EXAM: Radiograph of the Chest 1 View INDICATION: Shortness of breath TECHNIQUE: Frontal view of the chest. COMPARISON: No relevant prior studies available. FINDINGS: Lungs and pleural spaces: There is an irregular parenchymal opacity in the right lung base measuring 6.1 cm long by 4.5 cm transverse. There is scarring in the right lung apex. Mild right apical pleural thickening. No layering pleural effusion. No pneumothorax. Heart: Shape and configuration within normal limits allowing for technique. Mediastinum: Normal contour. Bones/joints: No fracture, erosion or dislocation. Soft tissues: No abnormality noted. No radiopaque foreign body noted. Upper abdomen: No abnormality noted. IMPRESSION: Irregular right basilar pulmonary opacity. While this could reflect pneumonia, neoplasm not excluded. ACT 112: N/A Electronically signed by Nilsa Clarke 01-19-2025 7:41 PM Chest X-Ray 01/21/25 07:00 EXAM: XR chest 1V portable CLINICAL HISTORY: follow up TECHNIQUE: An X-ray image of the chest is obtained in AP projection. COMPARISON: 01/19/2025 FINDINGS: Pulmonary Parenchyma: Redemonstration of ill defined patch of consolidation/opacity in the right lung base with possible juxta phrenic peak sign. Right apical scarring redemonstrated. Unchanged mild right apical pleural thickening. Minimal blunting of the left costophrenic angle seen. Heart and Mediastinum: Heart size and shape are normal. No mediastinal widening or masses. The right hilum appears prominent. Bony Thorax: Bony thorax appears intact without fractures or deformities. Soft Tissues: Soft tissues overlying the chest wall are unremarkable. IMPRESSION: 1. Redemonstration of ill defined patch of consolidation/opacity in the right lung base with possible juxta phrenic peak sign. 2. Minimal blunting of the left costophrenic angle seen. 3. Clinical correlation and CT scan chest is advised if clinically indicated. 4. No significant interval changes. Electronically signed by Chele Weston 01-21-2025 07:35 AM Pending Results Patient Have Any Pending Studies at Discharge: Yes Discharge Instructions Given to Patient (Per Discharging Provider) You have been hospitalized for abscess/infection to infected cyst on your neck. You have been treated with IV antibiotics and ENT was consulted and drained this and cultures are pending at discharge but given improvement with Unasyn IV we have converted to AUGMENTIN to take twice daily at discharge for another 8 days to complete 10 day course. Next dose is due TONIGHT. Ear drops to the LEFT ear twice daily until SUNDAY. You should have ongoing follow up with ENT at discharge for continued monitoring and likely removal of the cyst as this can come back. Please follow up with PCP in the next 7-[address] Powers has been alerted of your inpatient stay and your appointment has been scheduled for the 8th for follow up and reschedule of your chemo. Please call their office to repeat your blood counts at the end of the week or beginning of next week to ensure hemoglobin is stable and monitor for any bleeding or belly pain to return to the ER. Please return to the ER with any fever/chills, worsening pain/redness, difficulty swallowing, shortness of breath or for any other symptoms concerning for you. It has been a pleasure being a part of the medical team providing for you while you have been in the hospital. Take care! Supervising Physician Co-Signing Physician Notes The patient was not seen by me. The chart was reviewed. Case discussed with ROBERTH Parra. Agree with assessment and plan Total Time Total Time Spent Total Time Spent (In Minutes): 40 Coding Level of Care Code 82832 INP/OBS DISCH >30 MIN Diagnoses Thyroglossal duct infection K14.8 Abscess of neck L02.11 Lung cancer C34.91 Laterality: right Lung location: unspecified part of lung FISH (obstructive sleep apnea) G47.33
[2025-01-22] MEDS: MAGNESIUM SULFATE / D5W 1 GM/100 ML BAG IV SCH (10:17)
[2025-01-22 12:42] VITALS: PULSE 81; O2SAT 90
== END 2025-01-22 16:50 | disposition home or self-care (01) | DRG 580 ==
LOC: ED 17:57 → 3E 20:46 → SUATTDRO 20:46 → 3E 22:30